=== PATIENT | female | born 2000 | race African-American/Black ===

== ENCOUNTER 2021-12-14 14:12 | Emergency (ER) | payer OTHER, SELFPAY ==
--- NOTE | 2021-12-14 14:18 | ED.EYEPROB ---
HPI - Eye Problem General Chief complaint: Eye Problems Stated complaint: Foreign Body In Left Eye Time Seen by Provider: 12/14/21 14:18 Source: patient Mode of arrival: ambulatory Limitations: no limitations History of Present Illness HPI Narrative: Ms. Bright is a 21-year-old female patient presenting to clinic today with complaints of possible foreign body in the left eye. She reports she was opening up a can of food at work and thinks that something got into her left eye. She reports discomfort to the left lower eyelid. She did do a eyewash at work and this helps some of the discomfort but she is still having pain to the left eyelid. She denies any visual changes Related Data Allergies Allergy/AdvReac Type Severity Reaction Status Date / Time No Known Allergies Allergy Verified 12/14/21 14:33 Review of Systems Review of Systems: Pertinent positives per HPI. Patient denies any fever, chills, rash, headache, visual changes, dizziness, cough, runny nose, sore throat, shortness of breath, chest pain, palpitations, nausea, vomiting, diarrhea, constipation, abdominal pain, or any urinary issues. PMFSH Comments At the time of my signature, I reviewed and agree with the nursing past medical, surgical, social, and family history. There is no relevant family history pertinent to the patient complaint. Exam Narrative: General: Well-developed, well nourished, in no apparent distress Head: Normocephalic, atraumatic Eyes: Pupils equally round and reactive to light bilaterally, EOM intact, sclera and conjunctive clear, no discharge, lids normal, no foreign body or corneal abrasion noted to the left eye, no lesions, masses, or foreign body noted within the left eyelids Ears: TMs intact and clear, ear canals clear, no drainage, grossly hearing normal. Nose: Nares patent, no discharge, no inflammation, no sinus tenderness. Mouth: Oropharynx without lesions or masses, good dentition, MMM. Neck: Supple, trachea midline, no enlargement of anterior or posterior cervical nodes, no thyroid masses or goiter palpable. Cardio: Regular rate and rhythm, s1 and s2 normal, no murmur appreciated. Resp: Clear to auscultation bilaterally anteriorly and posteriorly, no rhonchi, rales, wheezing or rubs Course Course Emergency Course: Portions of this record may have been created with voice recognition software. Level of Care: Express Care Visit Vital Signs Vital signs: Vital signs reviewed Procedures Other Procedure Procedure 1: Other Procedure: Topical anesthetic was instilled with good anesthesia using 2gtt of opth anesthetic agent (tetracaine). Fluorescein stain of the left eye was performed without uptake of dye. No epithelial defect was noted. NO FB, ulcer or dendritic lesions. Upper lid was everted and lower eyelid was swab with sterile cotton swabs and no FB or lesions were noted. NO Manjinder sign. Normal saline irrigation eye solution was performed and the patient tolerated the procedure well, no adverse reaction or complications. MDM - Eye Problem MDM Narrative Medical decision making narrative: At the time of visit patient is resting comfortably on the exam table. Michael lamp exam was performed and there was no sign of corneal abrasion or globe rupture. No visible foreign body noted. I suspect the patient may have eyelid irritation due to foreign body that has already been removed. We will send in prescription for erythromycin to prevent secondary infection and help soothe eyelid. Supportive measures were discussed with the patient she voiced understanding of discharge instructions and agrees to treatment plan Differential Diagnosis Differential diagnosis: Likely corneal abrasion, conjunctivitis, ruptured globe and other (Foreign body) Discharge Plan Discharge Clinical Impression: Irritation of eyelid Patient Disposition: Home, Self-Care Condition: Stable Instructions: Antibiotic Form, Eye Pain (ED) Additi
[2021-12-14 14:22] VITALS: BP 143/99; PULSE 89; RESP 20; TEMP 36.6; O2SAT 100
[2021-12-14 14:34] VITALS: BP 143/99; PULSE 89; RESP 20; TEMP 36.6; O2SAT 100
== END 2021-12-14 14:55 | disposition home or self-care (01) ==
PROVIDERS: Emergency Provider Nurse Practitioner Family
DX: H02.9 Unspecified disorder of eyelid (principal)
CPT/HCPCS: 99213; A9270; G0463

== ENCOUNTER 2022-01-04 08:02 | Emergency (ER) | payer OTHER, SELFPAY ==
[2022-01-04 08:09] VITALS: BP 124/79; PULSE 111; RESP 20; TEMP 37; O2SAT 98
--- NOTE | 2022-01-04 08:09 | ED.URI ---
HPI - URI/Sore Throat General Chief Complaint: Upper Respiratory Infection Stated Complaint: sore throat, tightness in chest, headache, cough Time Seen by Provider: 01/04/22 08:11 Source: patient and RN notes reviewed History of Present Illness HPI Narrative: Patient is a 21-year-old female who presents to the Urgent Care with complaints of sore throat, headache, cough and chest congestion. Patient states it started last night and she has been taking anti acids. Patient denies any nausea, fever, vomiting or exposure. No other acute complaints. No acute distress noted. Patient aware of the plan of care. Some parts of this dictation were generated by voice recognition software and may contain typographical and/or grammatical inaccuracies. Related Data Home Medications Medication Instructions Recorded Confirmed No Home Medications 01/04/22 01/04/22 Allergies Allergy/AdvReac Type Severity Reaction Status Date / Time No Known Allergies Allergy Verified 01/04/22 08:17 Review of Systems Review of Systems: CONSTITUTIONAL: Denies fever, chills, or sweats. EYES: Denies visual changes, redness, or discharge. ENT: Reports of sinus congestion, sore throat CARDIOVASCULAR: Denies chest pain, palpitations, or edema. RESPIRATORY: reports a cough and chest congestion GASTROINTESTINAL: Denies abdominal pain, nausea, vomiting, or diarrhea. GENITOURINARY: Denies dysuria or hematuria. SKIN: Denies rash or itching. MUSCULOSKELETAL: Denies back pain, joint pain, or myalgia. NEUROLOGIC: reports of headache All other systems reviewed are negative, except as documented in HPI. PMFSH Comments At the time of my signature, I reviewed and agree with the nursing past medical, surgical, social, and family history. There is no relevant family history pertinent to the patient complaint. Exam Narrative: GENERAL: This is a well-nourished, well-developed patient, in no apparent distress. HEAD: normocephalic, atraumatic. EYES: PERRL. Sclera clear/white. Vision is grossly intact. EARS: External ears normal, auditory canals clear and without drainage, TMs normal without perforation. Hearing grossly intact. NOSE: External nose normal with no obvious nasal discharge, nares without redness, clear rhinorrhea. THROAT: Mucous membranes moist, posterior pharynx clear. moderate postnasal drainage NECK: Neck supple, non-tender without lymphadenopathy, masses or thyromegaly. CARDIOVASCULAR: Regular rate and rhythm without murmurs, gallops, or rubs. RESPIRATORY: Clear to auscultation. Breath sounds equal bilaterally. No wheezes, rales, or rhonchi. SKIN: warm, intact with no suspicious lesions or rash, good texture and turgor. NEURO: awake, alert, and oriented to person, place and time. There were no obvious focal neurologic abnormalities. EXTREMITIES: No clubbing, cyanosis, or edema. Course Course Level of Care: Express Care Visit Vital Signs Vital signs: Vital Signs Temperature 98.6 F 01/04/22 08:09 Pulse Rate 111 H 01/04/22 08:09 Respiratory Rate 20 01/04/22 08:09 Blood Pressure 124/79 01/04/22 08:09 Pulse Oximetry 98 01/04/22 08:09 Oxygen Delivery Room Air 01/04/22 08:09 Temperature 98.6 F 01/04/22 08:09 Pulse Rate 111 H 01/04/22 08:09 Respiratory Rate 20 01/04/22 08:09 Blood Pressure 124/79 01/04/22 08:09 Pulse Oximetry 98 01/04/22 08:09 Oxygen Delivery Room Air 01/04/22 08:09 reviewed MDM - URI/Sore Throat MDM Narrative Medical decision making narrative: reviewed lab results with the patient. She is aware that strep swab was negative. Educated patient culture and we will call within 72 hours if culture is positive antibiotics are necessary. Influenza swab was also negative. Advised patient to use an [id number] allergy medication such as Claritin or Zyrtec, Delsym as needed for cough, and Tylenol/ ibuprofen as needed. Increase your water intake and rest. Use a humidifier at night.
== END 2022-01-04 08:45 | disposition home or self-care (01) ==
PROVIDERS: Emergency Provider Nurse Practitioner Family
DX: B34.9 Viral infection, unspecified (principal); E03.9 Hypothyroidism, unspecified
CPT/HCPCS: 87081; 87804; 87880; 99213; G0463

== ENCOUNTER 2022-01-31 12:54 | Emergency (ER) | payer OTHER, SELFPAY ==
[2022-01-31 13:07] VITALS: BP 131/81; PULSE 69; RESP 20; TEMP 36.8; O2SAT 100
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
== END 2022-01-31 16:07 | disposition home or self-care (01) ==
PROVIDERS: Emergency Provider Registered Nurse
DX: T21.22XA Burn of second degree of abdominal wall, initial encounter (principal); X19.XXXA Contact with other heat and hot substances, initial encounter; E03.9 Hypothyroidism, unspecified
CPT/HCPCS: 99213; G0463

== ENCOUNTER 2022-06-22 17:03 | Emergency (ER) | payer OTHER, SELFPAY ==
[2022-06-22 17:10] VITALS: BP 136/82; PULSE 102; RESP 16; TEMP 37.2; O2SAT 100
--- NOTE | 2022-06-22 17:19 | ED.GENADULT ---
HPI - General Adult General Chief complaint: Upper Respiratory Infection Stated complaint: sore throat/ nausea / ears Time Seen by Provider: 06/22/22 17:26 Source: patient and RN notes reviewed Mode of arrival: ambulatory Limitations: no limitations History of Present Illness HPI narrative: 21-year-old female presents with concern for 2 day history of nausea, sore throat, right ear pain. She reports nausea started 1st then the sore throat and ear pain. Reports her brother had strep throat. She denies fever, aches, chills, sweats. MD complaint: Sore throat Related Data Allergies Allergy/AdvReac Type Severity Reaction Status Date / Time No Known Allergies Allergy Verified 01/31/22 15:10 Review of Systems Review of Systems: CONSTITUTIONAL: Denies malaise, chills, sweats, or fever. EYES: Denies visual changes, redness, or discharge. ENT: Denies rhinorrhea, congestion, sinus pain. Reports otalgia and sore throat. CARDIOVASCULAR: Denies chest pain, palpitations, or edema. RESPIRATORY: Denies cough. Denies dyspnea. GASTROINTESTINAL: Denies abdominal pain, vomiting, diarrhea. Reports nausea SKIN: Denies rash or itching. MUSCULOSKELETAL: Denies myalgia. NEUROLOGIC: Denies headache. All systems reviewed & are unremarkable except as noted in HPI and below PMFSH Past Medical History Medical History Anemia Hypothyroidism Surgical History Surgical History Hx of breast reduction, elective Social History Social History (Updated 02/05/22 @ 17:23 by Tabitha Francisco NP) Smoking status: Never smoker Alcohol intake: unknown Substance use type: does not use Living arrangements: with family Gender identity (if verbalized by the patient): Female Comments At time of signature, agree with nursing past medical, surgical, social and family history. There is no relevant family history pertinent to the presenting complaint Exam Narrative: GENERAL: Well-appearing, well-nourished, and in no acute distress. HEAD: Normocephalic EYES: PERRLA, conjunctivae clear ENT: Nares clear, no discharge. Mucous membranes moist. TM pearly sethi with dull light reflex bilaterally; no tragal tenderness. Oropharynx erythematous without lesions. Tonsils not enlarged and without exudate, no drooling, no hoarseness, no trismus, uvula midline. NECK: Supple. No lymphadenopathy CHEST: Clear to auscultation, breath sounds equal. No wheezing, rhonchi, rales, or stridor. No respiratory distress, speaks in full sentences. HEART: Regular rate and rhythm. No murmur heard. SKIN: Warm, dry, no rash. NEURO: Alert and oriented x3. PSYCH: Normal mood and affect Course Course Emergency Course: Patient is aware of diagnosis, understands and agrees to treatment plan. Anticipatory guidance given. Patient agrees to follow-up as directed and is aware of reasons to seek care at the emergency department. Portions of this record may have been created with voice recognition software Level of Care: Express Care Visit Vital Signs Vital signs: Vital Signs Temperature 99 F 06/22/22 17:10 Pulse Rate 102 H 06/22/22 17:10 Respiratory Rate 16 06/22/22 17:10 Blood Pressure 136/82 06/22/22 17:10 Pulse Oximetry 100 06/22/22 17:10 Oxygen Delivery Room Air 06/22/22 17:10 Temperature 99 F 06/22/22 17:10 Pulse Rate 102 H 06/22/22 17:10 Respiratory Rate 16 06/22/22 17:10 Blood Pressure 136/82 06/22/22 17:10 Pulse Oximetry 100 06/22/22 17:10 Oxygen Delivery Room Air 06/22/22 17:10 Reviewed. Medical Decision Making MDM Narrative Medical decision making narrative: Differential diagnosis considered: Mora virus, strep pharyngitis, allergic rhinitis, upper respiratory tract infection, sinusitis, rhinosinusitis, nasopharyngitis. viral pharyngitis, otitis media, otitis externa, pneumonia, bronchitis, viral cough
== END 2022-06-22 17:35 | disposition home or self-care (01) ==
PROVIDERS: Emergency Provider Nurse Practitioner
DX: J02.0 Streptococcal pharyngitis (principal); E03.9 Hypothyroidism, unspecified
CPT/HCPCS: 87880; 99213; G0463

== ENCOUNTER 2023-08-05 12:31 | Emergency (ER) | payer OTHER, SELFPAY ==
[2023-08-05 12:34] VITALS: BP 139/89; PULSE 83; RESP 18; TEMP 36.7; O2SAT 98
--- NOTE | 2023-08-05 12:47 | ED.FEMALEGU ---
HPI - Female Genitourinary General Chief complaint: Urogenital-Female Stated complaint: Urinary Problem Time Seen by Provider: 08/05/23 12:47 Source: patient, RN notes reviewed and old records reviewed Mode of arrival: ambulatory Limitations: no limitations History of Present Illness HPI Narrative: 22 year old female who presents to [facility] care with 4 day history of urinary frequency and some lower abdominal cramping. Patient reports that she did have some spotting 2 days ago then resolved. Patient denies any vaginal discharge or itching wants tested for STD but reports has not been sexually active for 5 months.Patient has small open abscess to right groin which patient reports has been draining has had similar wound in past.Patient reports no fevers chills or sweats, denies any nausea or vomiting. Patient had to void at several attempts to get enough urine for testing. MD elicited complaint: UTI Onset (ago): day(s) (4) Location of symptoms: urethra and other (lower abdomen cramping) Vaginal discharge: none Related Data Allergies Allergy/AdvReac Type Severity Reaction Status Date / Time No Known Allergies Allergy Verified 08/05/23 12:53 Review of Systems Review of Systems: CONSTITUTIONAL: Denies fever, chills, or sweats. CARDIOVASCULAR: Denies chest pain, palpitations, or edema. RESPIRATORY: Denies cough or dyspnea. GASTROINTESTINAL: Reports lower abdomen cramping ,no nausea, vomiting, or diarrhea. GENITOURINARY: Reports dysuria, frequency, urgency. Denies flank pain or hematuria. SKIN: Denies rash or itching. small open absess to right groin area MUSCULOSKELETAL: Denies back pain or myalgia. Denies CVA tenderness NEUROLOGIC: Denies headache All systems reviewed & are unremarkable except as noted in HPI and below PMFSH Past Medical History Medical History Anemia Hypothyroidism IBS (irritable bowel syndrome) Surgical History Surgical History History of orthopedic surgery right ankle repair Hx of breast reduction, elective also right breast tumor removed benign Social History Social History (Updated 08/06/23 @ 08:15 by Tabitha Francisco NP) Smoking status: Never smoker Alcohol intake: current Alcohol use details: rare social Substance use type: does not use Living arrangements: with family Gender identity (if verbalized by the patient): Female Comments At time of signature, agree with nursing past medical, surgical, social and family history. There is no relevant family history pertinent to the presenting complaint Exam Narrative: GENERAL: Well-appearing, well-nourished, and in no acute distress. HEAD: Normocephalic, atraumatic. NECK: Supple.no lymphadenopathy CHEST: Clear to auscultation. No respiratory distress.SAO2 98% on room air HEART: Regular rate and rhythm. No murmur heard. Normal peripheral pulses. ABDOMEN: Soft, nontender to palpation, nondistended, normal active bowel sounds. No CVA tenderness,urinary frequency reported EXTREMITIES: Normal range of motion. No edema. SKIN: Warm, dry, no rash.0.2 open slightly red abscess in right groin which has been draining NEURO: No focal deficits. Alert and oriented x3. Course Course Emergency Course: Patient is aware of diagnosis, understands and agrees to treatment plan.? Anticipatory guidance given.? Patient agrees to follow-up as directed and is aware of reasons to seek care at the emergency department. Portions of this record may have been created with voice recognition software Level of Care: Express Care Visit Vital Signs Vital signs: Vital Signs Temperature 36.7 C 08/05/23 12:34 Pulse Rate 83 08/05/23 12:34 Respiratory Rate 18 08/05/23 12:34 Blood Pressure 139/89 08/05/23 12:34 Pulse Oximetry 98 08/05/23 12:34 Oxygen Delivery Room Air 08/05/23 12:34 Temperature 36.7 C 08/05/23 12:34
[2023-08-05 21:27] LABS: Chlamydia trachomatis NOT DETECTED (NOT DETECTE); Neisseria gonorrhoeae PCR NOT DETECTED (NOT DETECTE)
== END 2023-08-05 14:26 | disposition home or self-care (01) ==
PROVIDERS: Emergency Provider Registered Nurse
DX: L02.214 Cutaneous abscess of groin (principal); N39.0 Urinary tract infection, site not specified; Z11.3 Encounter for screening for infections with a predominantly sexual mode of transmission; E03.9 Hypothyroidism, unspecified
CPT/HCPCS: 81003; 87086; 87491; 87591; 99214; G0463

== ENCOUNTER 2024-05-21 18:43 | Emergency (ER) | payer OTHER, SELFPAY ==
--- OUTSIDE RECORDS SUMMARY | 2024-05-21 18:46 | XMS_ITS | Data Portability ---
Author Organization [employer], [facility] Address [address] [place] [address] Assessment No assessment recorded. Plan of Treatment Reminders Order Date Submit Date Provider Last Modified By Organization Details Last Modified Time Details Appointments None record ed. Lab None record ed. Referral None record ed. Procedures None record ed. Surgeries None record ed. Imaging None record ed. Medication Orders None record ed. Patient TargetsNo targets recorded. Patient InstructionsNo instructions recorded. Reason for Referral None Reported. Procedures Surgical History Date Name Laterality Status Provider Name and Address Organization Details Recorded Time Date of Last Pap Smear completed [facility] [employer] 02/14/2024 12:01:31 Breast Reduction completed Amanda Sanchez [employer] 02/14/2024 12:01:32 Imaging Results None recorded. Procedure Notes None recorded. Medical Equipment None Reported. Allergies No known drug allergies Medications Name Sig Start Date Stop Date Status Note LastModified by Organization Details LastModified Time sulfamethox azole 800 mg-trimetho prim 160 mg tablet TAKE 1 TABLET BY MOUTH EVERY 12 HOURS FOR 10 DAYS 02/13 completed Not Available Not Available Not Available mupirocin 2 % topical ointment APPLY TOPICALLY TWICE A DAY active Not Available Not Available No t Available clotrimazol e 1 % topical cream PLEASE SEE ATTACHED FOR DETAILED DIRECTION S active Not Available Not Available No t Available Vitals Date Recorded Body height Body mass index (BMI) Body weight Systolic blood pressure Diastolic blood pressure Provider Name and Address Organization Details Last Updated DateTime 02/14/2024 160.02 cm 37.9 kg/m2 32253.05 g 118 mm[Hg] 70 mm[Hg] Amanda [place] [employer] 12:08:07 Social History Question Answer Notes LastModified by Organizat ion Details LastModified Time Tobacco Smoking Status Never Smoker Amanda Sanchez null, [facility] 02/14/2024 12:01:32 What Is Your Level Of Alcohol Consumption? None [email or web address] Information not available 02/14/2024 If You Are , What Was Your Level Of Alcohol Consumption Prior To ? None [email or web address] Information not available 02/14/2024 Are You Blind Or Do You Have Difficulty Seeing? No [email or web address] Information not available 02/14/2024 Are You Currently Employed? Yes [email or web address] Information not available 02/14/2024 Are You Deaf Or Do You Have Serious Difficulty Hearing? No [email or web address] Information not available 02/14/2024 What Type Of Diet Are You Following? REGULAR [email or web address] Information not available 02/14/2024 How Many Children Do You Have? 0 [email or web address] Information not available 02/14/2024 Are There Any Occupational Health Risks Where You Work? Yes [email or web address] Information not available 02/14/2024 What Is Your Relationship Status? Single Information not available 02/14/2024 Are You Sexually Active? Yes Information not available 02/14/2024 Do You Use Any Illicit Or Recreational Drugs? No [email or web address] Information not available 02/14/2024 Sex: Unknown Functional Status Question Answer Note LastModified by Organizat [employer] Details LastModified Time What is your exercise level? Occasional [email or web address] Information not available 02/14/2024 Mental Status None recorded. Family History Relationship Description Onset Age of this Age Resolved Age Notes LastModified by Organization Details LastModified Time Mother Hypertensive disorder [email or web address] Not available 02/13 12:01:31 Father Hypertensive disorder [email or web address] Not available 02/13 12:01:31 Medical History Condition Response Anemia Y IBS (Irritable Bowel Syndrome) Y Gynecological History Statement/Question Response Flow Moderate Date of LMP 02/13/2024 Frequency of Cycle (Q days) 19,20,21,22. 23 Date of Last Pap Smear 12/03/2023 Duration of Flow (days) 5 Age at Menarche 9 years old Obstetrics History GPAL:G 0 P 0 0 0 0 Past Encounters Encounter ID Performer Location Encounter Start Date Encounter Closed Date Diagnosis/Indication Diagnosis SNOMED-CT Code Diagnosis ICD10 Code Diagnosis Note [id number] Mae Calix MD [facility] [address] [place] [place] [address] 02/14/2024 11:48:03 02/14/2024 13:17:49 Cyst of Bartholin's gland duct 86863951 N75.0 -Discussed multiple different options with the bartholin gland abscess, including warm compresses to help decrease size, I&D and potential needs or word catheter.- Discussed risks benefits of both and urged to proceed conservati vely as the area can be quite vascular.- Due to small size of cyst will monitor at this time. Patient will apply warm compresses 2-3 times a day.-Will RTC if increases in size or pain for possible I&D-Precau tions reviewed and s/sx of infection discussed. Patient voices understand ing. The patient was initially evaluated by KRISSY Balderas, who completed the history examinatio n, and preliminar y assessment . I, Mae Calix MD, entered the room to review and discuss the care plan with the patient. After reviewing the specific findings and documentat ion provided by Melina, I confirmed the diagnosis and care plan, addressing any additional concerns or questions raised by the patient. The final plan of care was developed collaborsarah perry and has been documented accordingelicia y. Health Concerns Section Related Observation LastModified by Organization Detai ls LastModified Time None Recorded Concern Status LastModified by Organization Details LastModified Time None Recorded Advance Directives Directive None Recorded Payers Encounter Date Sequence Insurance Name Policy Number Policy Graham Covered Member ID Graham Member ID Guarantor Name 02/14/2024 1 [facility] Ana Bright [id number] Ana Bright Notes Date Note Type Note Provider Name and Address Organization Details Recorded Time 02/14/2024 text/html Ana 23 y/o ne w patient here for ER f/u on Bartholin cyst, she was in ER on 01/31/2024 due to a painful cyst, they completed an I&D at that time. Patient states it decreased in size and then filled back up. It was smaller so her PCP told her to do sitz baths and follow up with STACK ATTENDANT. Pt reports it has almost gone completely away and denies any discomfort today. This was her first time experiencing a bartholin cyst. Mae Calix MD [address] [facility], [place], [address], [facility] 02/14/2024 20:06:05 OBGyn Episode No OBEpisode recorded.
--- OUTSIDE RECORDS SUMMARY | 2024-05-21 18:46 | XMS_ITS | Clinical Summary ---
Author Organization [facility] [employer] Address [address] [place] [address] Care Team Providers Care Party Plan Sales Director Name Role Phone Sheeba Vegas Cassandra KEYS-FIVE ROLL REFINER BATCH MIXER Primary Care Provider Source Comments [facility] [employer],non-owned Affiliates and Associated Physician Practices is amultiple site organization consisting of ambulatory clinics and hospital sitesin [place], [place], [place] and [place]. This disclosure is being madepursuant to the Care Everywhere program and may not contain all information available regarding this patient. Last updated [employer] Allergies No known active allergies Medications * Be aware that medications may not be up to date on this document. Alwaysverify current medications with the patient. Medication Sig Dispensed Refills Start Date End Date Status ibuprofen (MOTRIN) 800 MG tablet TAKE 1 TABLET BY MOUTH THREE TIMES A DAY NEEDED 1 11/13/2018 Active cyclobenzaprine (FLEXERIL) 10 MG tablet TAKE 1 TABLET BY MOUTH THREE TIMES A DAY NEEDED 1 11/09/2018 Active Family History Medical History Relation Name Comments Hypertension Father Hypertension Mother Relation Name Status Comments Father Mother Social History Tobacco Use Types Packs/Day Years Used Date Smoking Tobacco: Never Smokeless Tobacco: Never Alcohol Use Standard Drinks/Week Comments Never 0 (1 standard drink = 0.6 oz pur e alcohol) AUDIT-C Answer Date Recorded Frequency of Alcohol Consumption Never 12/03/2018 Average Number of Drinks Not on file 019 Frequency of Binge Drinking Not on file 10/2018 Sex and Gender Information Value Date Recorded Sex Assigned at Not on file Gender Identity Not on file Sexual Orientation Not on file Last Filed Vital Signs Vital Sign Reading Time Taken Comments Blood Pressure 145/95 12/03/2018 10:56 AM CDT Pulse 76 12/03/2018 10:56 AM CDT Temperature 36.7 C (98 F) 12/03/2018 10:56 AM CDT Respiratory Rate - - Oxygen Saturation 99% 12/03/2018 10:56 AM CDT Inhaled Oxygen Concentration - - Weight 95.3 kg (210 lb) 12/03/2018 10:56 AM CDT Height 160 cm (5' 3 ) 12/03/2018 10:56 AM CDT Body Mass Index 37.2 12/03/2018 10:56 AM CDT Plan of Treatment Health Maintenance Due Date Last Done Comments HIV SCREENING 2013 HPV VACCINE (1 - 3-dose series) 2013 HEPATITIS C SCREENING 08/04/2016 DTAP/TDAP/TD VACCINES (1 - Tdap) 2017 HEPATITIS B VACCINE (1 of 3 - 19+ 3-dose series) 2017 CHLAMYDIA/GONORRHEA SCREENING 11/27/2019 11/26/2018 PAP SMEAR 11/26/2021 COVID-19 VACCINE (1 - 2023-2 5 season) 2023 INFLUENZA VACCINE (#1) 2023 DEPRESSION SCREENING 02/26/2024 ZOSTER VACCINE (1 of 2) 2048 HIB VACCINE Aged Out No longer eligi ble based on patient's age to complete this topic MENINGOCOCCAL (Group B) VACC INE SHARED DECISION-MAKING Aged Out No longer eligibl e based on patient's age to complete this topic MENINGOCOCCAL GROUPS A/C/Y/W VACCINE Aged Out No longer eligible b ased on patient's age to complete this topic PNEUMOCOCCAL VACCINE Aged Out No long er eligible based on patient's age to complete this topic Care Teams Party Plan Sales Director Relationship Specialty Start Date End Date Sheeba Vegas, OYSTER CULTURIST-FIVE ROLL REFINER BATCH MIXER [address] [place] [id number] [facility] - General 11/18/18
--- OUTSIDE RECORDS SUMMARY | 2024-05-21 18:46 | XMS_ITS | Clinical Summary ---
Author Organization [facility] Address [address] [place] [address] Phone Care Team Providers Care General Accounting Manager Name Role Phone Provider, None Primary Care Provider Unavailabl e Allergies No known active allergies Medications Ferrous Sulfate (IRON PO) Take by mouth. Active Active Problems Problem Noted Date Diagnosed Date B12 deficiency 04/17/2023 Anemia 12/14/2022 Menorrhagia with regular cycle 12/14/2022 Social History Tobacco Use Types Packs/Day Years Used Date Smoking Tobacco: Never Smokeless Tobacco: Never Tobacco Cessation:Counseling Given: Not Answered Alcohol Use Standard Drinks/Week Comments Not Currently 0 (1 standard drink = 0.6 oz pur e alcohol) Comments No Sex and Gender Information Value Date Recorded Sex Assigned at Female 02/01/2024 2:35 AM TUMBLING INSTRUCTOR Legal Sex Female 12:23 PM CDT Gender Identity Female 02/01/2024 2:35 AM TUMBLING INSTRUCTOR Sexual Orientation Not on file Last Filed Vital Signs Vital Sign Reading Time Taken Comments Blood Pressure 140/70 02/01/2024 4:11 AM TUMBLING INSTRUCTOR Pulse 88 02/01/2024 4:11 AM TUMBLING INSTRUCTOR Temperature 36.1 C (96.9 F) 02/01/2024 12:57 AM TUMBLING INSTRUCTOR Respiratory Rate 18 02/01/2024 4:11 AM TUMBLING INSTRUCTOR Oxygen Saturation 100% 02/01/2024 4:11 AM TUMBLING INSTRUCTOR Inhaled Oxygen Concentration - - Weight 97.1 kg (214 lb) 02/01/2024 12:57 AM TUMBLING INSTRUCTOR Height 160 cm (5' 3 ) 02/01/2024 12:57 AM TUMBLING INSTRUCTOR Body Mass Index 37.91 02/01/2024 12:57 AM TUMBLING INSTRUCTOR Plan of Treatment Health Maintenance Due Date Last Done Comments Hepatitis C Virus (HCV) Screening 1998 Pap Smear 08/10/2019 Influenza Immunization (#1) 2023 01/22/2023, 0 04/28/2013 SARS-COV-2 Immunization ( season) 2023 Respiratory Syncytial Virus (RSV) Immunization (Adult) (1 - 1-dose 75+ series) 2073 Hepatitis B Immunization Completed 000, 01/23/1999, 1998 Human Papillomavirus (HPV) Immunization Completed 04/28/2013, 10/28/2012 Meningococcal Immunization (ACWY) Completed 11/26/2016, 10/28/2012 Meningococcal B Immunization Discontinued 10/14/2017, 11/26/2016 DTaP/Tdap/Td Immunization Discontinued 2022, 10/28/2012, 09/23/2003, Additional history exists TdaP Immunization Completed 11/28/2022, 10/28/2012 Pneumococcal Immunization Combined Aged Out No longer eligible based on patient's age to complete this topic Rotavirus Immunization Aged Out No lo nger eligible based on patient's age to complete this topic Insurance MEDICARE C [place] Care Teams General Accounting Manager Relationship Specialty Start Date End Date Provider, None [place] PCP - General 01/12/24
--- OUTSIDE RECORDS SUMMARY | 2024-05-21 18:46 | XMS_ITS | Referral Summary ---
Author Organization [facility] Address [address] [place] [address] Care Team Providers Care Supervisor Ship Maintenance Services Name Role Phone Gordy Mcgowan MD Primary Care Provider + Allergies No known active allergies Medications ibuprofen (ADVIL,MOTRIN) 400 mg tablet take 1 tablet by oral route every 4 - 6 hours as needed 0 0 5 Active HYDROcodone-ac etaminophen ([place]) 5-325 mg per tabletIndicati ons:Pain Take 1 tablet by mouth every 6 (six) hours as needed for pain 12 tablet 1 Active ibuprofen (ADVIL,MOTRIN) 600 mg tablet Take 1 tablet (600 mg total) by mouth every 6 (six) hours as needed for pain Collaborating physician César Wallace MD 30 tablet 2 Active ibuprofen (ADVIL,MOTRIN) 600 mg tabletIndicati ons:Pain Take 1 tablet (600 mg total) by mouth every 6 (six) hours as needed for pain 21 tablet 3 Active Active Problems Problem Noted Date Diagnosed Date Urinary tract infection in female 09/11/2021 Dysmenorrhea 09/11/2021 Breast mass, right 05/30/2020 Social History Tobacco Use Types Packs/Day Years Used Date Smoking Tobacco: Never Smokeless Tobacco: Never AUDIT-C Answer Date Recorded Q1: How often do you have a drink containing alc ohol? Monthly or less 10/17/2020 Q2: How many drinks containi ng alcohol do you have on a typical day when you are drinking? 1 or 2 10/17/2020 Q3: How often do you have si x or more drinks on one occasion? Never 10/17/2020 Personal Safety Answer Date Recorded Have you ever been in or are you currently in a harmful physical or emotional relationship or is someone making you feel afraid or unsafe? 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 Gender Identity Not on file Sexual Orientation Not on file Last Filed Vital Signs Vital Sign Reading Time Taken Comments Blood Pressure 148/79 10/07/2022 7:04 PM CDT Pulse 91 10/07/2022 7:04 PM CDT Temperature 37.1 C (98.8 F) 10/07/2022 7:04 PM CDT Respiratory Rate 18 10/07/2022 7:04 PM CDT Oxygen Saturation 100% 10/07/2022 7:04 PM CDT Inhaled Oxygen Concentration - - Weight 93.3 kg (205 lb 11 oz) 10/07/2022 7:04 PM CDT Height 160 cm (5' 3 ) 10/07/2022 7:04 PM CDT Body Mass Index 36.44 10/07/2022 7:04 PM CDT Plan of Treatment Not on file Medical Devices Implanted Type Area Performance Consultant Device Identifier Shelf Expiration Date Model / Serial / Lot Bard Peripheral Vascular [id number] Ultraclip Bard 17ga 12cm 2 Trigger Permanent Ultrasound - [id number] - [id number] Implanted:Qty: 1 on 05/09/2020 by Oneil Jansen MD at [facility] Breast Right: Breast Bard Peripheral Vascular 11/22/2022 [id number] / [id number] / Bard Peripheral Vascular [id number] Ultraclip Bard 17ga 10cm 2 Trigger Permanent Ultrasound - [id number] - [id number] Implanted:Qty: 1 on 05/09/2020 by Oneil Jansen MD at [facility] Breast Right: Axilla Bard Peripheral Vascular 11/22/2022 [id number] / [id number] / [employer] [id number] Magseed 18ga 7cm Marker Breast Biopsy - [id number] Implanted:Qty: 1 on 10/24/2020 at [facility] Right: Breast [employer] [id number] 05/25/2024 [id number] Insurance [facility] [employer] [place] Care Teams Supervisor Ship Maintenance Services Relationship Specialty Start Date End Date Gordy Mcgowan MD [address] [place] [address] [place] [address] PCP - General 10/20/21
--- OUTSIDE RECORDS SUMMARY | 2024-05-21 18:46 | XMS_ITS | Clinical Summary ---
Author Organization [facility] Address [address] [place] [address] Care Team Providers Care Automobile Accessories Salesperson Name Role Phone Gordy Mcgowan MD Primary Care Provider + Allergies No known active allergies Medications ibuprofen (ADVIL,MOTRIN) 400 mg tablet take 1 tablet by oral route every 4 - 6 hours as needed 0 0 5 Active HYDROcodone-ac etaminophen ([place]) 5-325 mg per tabletIndicati ons:Pain Take 1 [...] 09/11/2021 Dysmenorrhea 09/11/2021 Breast mass, right 05/30/2020 Surgical History Surgery Date Site/Laterality Comments US GUIDED BIOPSY LYMPH NODE SUPERFICIAL LEFT 05/09/2020 N/A BREAST BIOPSY 05/09/2020 Right ORIF ANKLE FRACTURE 02/25/2015 - 02/25/2016 Medical History Medical History Date Comments Hx Other Medical right ankle ope n reduction and internal fixation ( Family History Medical History Relation Name Comments Diabetes type II Other 1 Family hist ory of Diabetes mellitus type 2; Heart disease Other 2 Family history of Heart problems; Hypertension Other 3 Family history of Hypertension; Seizures Other 4 Family history of Seizure disorder; Stroke Other 5 Family history of Stroke; Anesthesia problems Neg Hx Relation Name Status Comments Other 1 Other 2 Other 3 Other 4 Other 5 Social History Tobacco Use Types Packs/Day Years [...] on file Legal Sex Female 10:12 AM ENGINE LATHE SET UP OPERATOR Gender Identity Not on file Sexual Orientation Not on file Obstetrics History Last Filed Vital Signs Vital Sign Reading [...] 10/07/2022 7:04 PM CDT Plan of Treatment Health Maintenance Due Date Last Done Comments Cervical Cancer Screening 1998 Depression Screening 1998 Hepatitis C Screening 1998 Regular Well Visit/Exam 18-64 2016 DTaP/Tdap/Td Vaccine (6 - Td or Tdap) 10/28/2022 10/28/2012, 09/23/2003, 06/13/1999, Additional history exists Influenza Vaccine (#1) 2023 04/28/2013 Hepatitis B Screening Completed 06/13/1999 , 01/23/1999, 1998 Varicella Vaccines Completed 10/28/2012, 09/20/1999 HPV Vaccines Completed 04/28/2013, 10/28/2012 Pneumococcal vaccine <65 Aged Out No longer eligible based on patient's age to complete this topic Medical Devices Implanted Type Area Coffee Sampler Device Identifier Shelf Expiration Date Model / Serial / Lot Bard Peripheral Vascular [id number] Ultraclip Bard 17ga 12cm 2 Trigger Permanent Ultrasound - [id number] - [id number] Implanted:Qty: 1 on 05/09/2020 by Oneil Jansen MD at [facility] Breast Right: Breast Bard Peripheral Vascular 11/22/2022 [id number] / [id number] / Bard Peripheral Vascular [id number] Ultraclip Bard 17ga 10cm 2 Trigger Permanent Ultrasound - [id number] - [id number] Implanted:Qty: 1 on 05/09/2020 by Oneil Jansen MD at [facility] Breast Right: Axilla Bard Peripheral Vascular 11/22/2022 [id number] / [id number] / [employer] [id number] [id number] 18ga 7cm Marker Breast Biopsy - [id number] Implanted:Qty: 1 on 10/24/2020 at [facility] Right: Breast [employer] [id number] 05/25/2024 [id number] Insurance [facility] Care Teams Automobile Accessories Salesperson Relationship Specialty Start Date End Date Gordy Mcgowan MD [address] [place] [address] [place] [address] [facility] - General 10/20/21
--- OUTSIDE RECORDS SUMMARY | 2024-05-21 18:46 | XMS_ITS ---
Author Organization [facility] Address [address] [place] [address] Phone Care Team Providers Care Senior Oracle Soa Developer Name Role Phone Provider, None Primary Care Provider Unavailabl e [facility] Status:Enrolled (Active) Start date:03/25/2024 Enrollment date:03/25/2024 Related social drivers of health:Social Connections, Alcohol Use, Financial Resource Strain, Depression, Stress, Physical Activity, Food Insecurity, Transportation Needs, Housing Stability, Utilities Continued Care and Services Coordination
--- OUTSIDE RECORDS SUMMARY | 2024-05-21 18:46 | XMS_ITS | Data Portability ---
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 Plan of Treatment Reminders Order Date Submit Date Provider Last Modified By Organization Details Last Modified Time Details Appointments None record ed. Lab cytolo gy report , thin prep, smear or scrapi ng, cervic al or vagina l - brush and broom 2023 024 brendan [facility], [address], [place], [address], 4 18:45:53 cytolo gy report , thin prep, smear or scrapi ng, cervic al or vagina l 2022 023 DIANNE [facility], [address], [place], [address], 3 17:09:55 Referral gyneco logist referr al 2023 024 [facility], [address] [place], [address], 5 09:23:25 Procedures None record ed. Surgeries None record ed. Imaging None record ed. Medication Orders Bactri m DS 800 mg-160 mg tablet 2023 024 brendan [facility] [id number] In [facility], [address], [place], [place], [id number], 10:41:58 clotri mazole 1 % topica l cream 2023 024 [facility] [id number] In [facility], [address], [place], [place], [id number], 10:20:42 Patient TargetsNo targets recorded. Patient Instructions Encounter Date Encounter Id Patient Instructions Last Modified By Organization Details Last Modified Time 12/28/2022 [id number] A healthy lifestyle: care instructions Not available 12/28/2022 12:01:34 01/22/2023 [id number] Attending Physician Attestation nurse visit, not seen by provider John Fang MD mmetias Not available 01/30/2023 09:30:05 04/24/2023 [id number] A healthy lifestyle: care instructions Not available 04/24/2023 10:39:28 I discussed the patient s presentation, findings, assessment and plan with the resident during or immediately after the time of service. I agree with the resident s findings, assessment, and plan as documented in the note above. Zhou Blanca MD. 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 Referring Physician: Nkechi Singh, ELECTRICAL ELECTRONICS TECHNICIAN, Encounter Date: 02/04/2024 Results Created Date Observation Date Name Description Value Unit Range Abnormal Flag Note LastModifiedBy Organization Detail LastModifiedTime 11/29/19 23 11/28/2022 CBC WITH DIFFE RENTI AL/PL ATELE T WBC 6.7 x10e3 /uL 3.4-10 .8 Not Available [facility] Department [address] [place], [address], 11/29/2022 06:15:44 11/29/1911/28/2022 CBC WITH DIFFE RENTI AL/PL ATELE T RBC 4.70 x10e6 /uL 3.77-5 .28 Not Available [facility] Department [address] [place], [address], 11/29/2022 06:15:44 11/29/1911/28/2022 CBC WITH DIFFE RENTI AL/PL ATELE T hemoglobin 11.2 g/dL 11.1-1 5.9 Not Available [facility] Department [address] [place], [address], 11/29/2022 06:15:44 11/29/1911/28/2022 CBC WITH DIFFE RENTI AL/PL ATELE T hematocrit 37.3 % 34.0-4 6.6 Not Available [facility] Department [address] [place], [address], 11/29/2022 06:15:44 11/29/1911/28/2022 CBC WITH DIFFE RENTI AL/PL ATELE T MCV 79 fL 79-97 Not Available [facility] Department [address] [place], [address], 11/29/2022 06:15:44 11/29/1911/28/2022 CBC WITH DIFFE RENTI AL/PL ATELE T MCH 23.8 pg 26.6-3 3.0 below low normal Not Available [facility] Department [address] [place], [address], 11/29/2022 06:15:44 11/29/1911/28/2022 CBC WITH DIFFE RENTI AL/PL ATELE T MCHC 30.0 g/dL 31.5-3 5.7 below low normal Not Available [facility] Department [address] [place], [address], 11/29/2022 06:15:44 11/29/1911/28/2022 CBC WITH DIFFE RENTI AL/PL ATELE T RDW 14.6 % 11.5-1 4.5 above high normal Not Available [facility] Department [address] [place], [address], 11/29/2022 06:15:44 11/29/1911/28/2022 CBC WITH DIFFE RENTI AL/PL ATELE T platelets 345 x10e3 /uL 150-45 0 Not Available [facility] Department [address] [place], [address], 11/29/2022 06:15:44 11/29/1911/28/2022 CBC WITH DIFFE RENTI AL/PL ATELE T neutrophils 55 % notest b. Not Available [facility] Department [address] [place], [address], 11/29/2022 06:15:44 11/29/1911/28/2022 CBC WITH DIFFE RENTI AL/PL ATELE T lymphs 35 % notest b. Not Available [facility] Department [address] [place], [address], 11/29/2022 06:15:44 11/29/1911/28/2022 CBC WITH DIFFE RENTI AL/PL ATELE T monocytes 9 % notest b. Not Available [facility] Department [address] [place], [address], 11/29/2022 06:15:44 11/29/1911/28/2022 CBC WITH DIFFE RENTI AL/PL ATELE T eos 1 % notest b. Not Available [facility] Department [address] [place], [address], 11/29/2022 06:15:44 11/29/19 23 11/28/2022 CBC WITH DIFFE RENTI AL/PL ATELE T basos 0 % notest b. Not Available [facility] Department [address] [place], [address], 11/29/2022 06:15:44 11/29/1911/28/2022 CBC WITH DIFFE RENTI AL/PL ATELE T neutrophils (absolute) 3.7 x10e3 /uL 1.4-7. 0 Not Available [facility] Department [address] [place], [address], 11/29/2022 06:15:44 11/29/1911/28/2022 CBC WITH DIFFE RENTI AL/PL ATELE T lymphs (absolute) 2.3 x10e3 /uL 0.7-3. 1 Not Available [facility] Department [address] [place], [address], 11/29/2022 06:15:44 11/29/1911/28/2022 CBC WITH DIFFE RENTI AL/PL ATELE T monocytes(ab solute) 0.6 x10e3 /uL 0.1-0. 9 Not Available [facility] Department [address] [place], [address], 11/29/2022 06:15:44 11/29/1911/28/2022 CBC WITH DIFFE RENTI AL/PL ATELE T eos (absolute) 0.1 x10e3 /uL 0.0-0. 4 Not Available [facility] Department [address] [place], [address], 11/29/2022 06:15:44 11/29/1911/28/2022 CBC WITH DIFFE RENTI AL/PL ATELE T baso (absolute) 0.0 x10e3 /uL 0.0-0. 2 Not Available [facility] Department [address] [place], [address], 11/29/2022 06:15:44 11/29/1911/28/2022 CBC WITH DIFFE RENTI AL/PL ATELE T immature granulocytes 0.1 % notest b. Not Available [facility] Department [address] [place], [address], 11/29/2022 06:15:44 11/29/1911/28/2022 CBC WITH DIFFE RENTI AL/PL ATELE T immature grans (abs) 0.0 x10e3 /uL 0.0-0. 1 Not Available [facility] Department [address] [place], [address], 11/29/2022 06:15:44 11/29/1911/28/2022 CBC WITH DIFFE RENTI AL/PL ATELE T NRBC 0 % 0-0 Not Available [facility] Department [address] [place], [address], 11/29/2022 06:15:44 11/29/1911/29/2022 HGB FRACT IONAT ION CASCA DE HGB F 0.0 % 0.0-2. 0 Not Available [facility] ([facility]) [address] [place], [address], 11/30/2022 11:13:31 11/29/1911/29/2022 HGB FRACT IONAT ION CASCA DE HGB A 97.8 % 96.4-9 8.8 Not Available [facility] ([facility]) [address] [place], [address], 11/30/2022 11:13:31 11/29/1911/29/2022 HGB FRACT IONAT ION CASCA DE HGB A2 2.2 % 1.8-3. 2 Not Available [facility] ([facility]) [place], [address], 11/30/2022 11:13:31 11/29/1911/29/2022 HGB FRACT IONAT ION CASCA DE HGB S 0.0 % 0.0 Not Available [facility] ([facility]) [address] [place], [address], 11/30/2022 11:13:31 11/29/1911/29/2022 HGB FRACT IONAT ION CASCA DE interpretati on: Commen t Abi l hemog lobin prese nt; no hemog lobin varia nt or beta thala ssemi a ident ified . Note: Alpha thala ssemi a may not be detec agustín by the Hgb Fract ionat ion [place] de panel . If alpha thala ssemi a is suspe cted, [facility] offer s Alpha -Thal assem ia DNA Dayanara sis (#[phone]). Not Available [facility] ([facility]) [address] [facility], [place], [address], 11/30/2022 11:13:31 11/29/1911/29/2022 VITAM IN B12 AND FOLAT E vitamin B12 284 pg/mL 232-12 45 Not Available [facility] ([facility]) [address] [place], [address], 11/30/2022 11:13:32 11/29/1911/29/2022 VITAM IN B12 AND FOLAT E folate (folic acid), serum 7.3 NG/mL >3.0 A serum folat e layne ntrat ion of less than 3.1 ng/mL is consi dered to repre sent clini krista defic iency . Not Available [facility] ([facility]) [address] [facility], [place], [address], 11/30/2022 11:13:32 11/29/1911/29/2022 IRON AND TIBC iron bind.cap.(TI BC) 381 ug/dL 250-45 0 Not Available [facility] ([facility]) [address] [place], [address], 11/30/2022 11:13:33 11/29/19 23 11/29/2022 IRON AND TIBC UIBC 361 ug/dL 131-42 5 Not Available [facility] ([facility]) [address] [place], [address], 11/30/2022 11:13:33 11/29/19 23 11/29/2022 IRON AND TIBC iron 20 ug/dL 27-159 below low normal Not Available [facility] ([facility]) [address] [facility], [place], [address], 11/30/2022 11:13:33 11/29/1911/29/2022 IRON AND TIBC iron saturation 5 % 15-55 alert low Not Available [facility] ([facility]) [address] [facility], [place], [address], 11/30/2022 11:13:33 11/29/1911/29/2022 KRISTINA TIN ferritin 6 NG/mL 15-150 below low normal Not Available [facility] ([facility]) [address] [facility], [place], [address], 11/30/2022 11:13:34 11/29/1911/29/2022 HEMAT OPATH CONSU LTATI ON, SMEAR WBC 6.5 x10e3 /uL 3.4-10 .8 Not Available [facility] ([facility]) [address] [facility], [place], [address], 11/30/2022 11:13:35 11/29/1911/29/2022 HEMAT OPATH CONSU LTATI ON, SMEAR RBC 4.74 x10e6 /uL 3.77-5 .28 Not Available [facility] ([facility]) [address] [facility], [place], [address], 11/30/2022 11:13:35 11/29/1911/29/2022 HEMAT OPATH CONSU LTATI ON, SMEAR hemoglobin 11.1 g/dL 11.1-1 5.9 Not Available [facility] ([facility]) [address] [facility], [place], [address], 11/30/2022 11:13:35 11/29/1911/29/2022 HEMAT OPATH CONSU LTATI ON, SMEAR hematocrit 37.2 % 34.0-4 6.6 Not Available [facility] ([facility]) [address] [place], [address], 11/30/2022 11:13:35 11/29/1911/29/2022 HEMAT OPATH CONSU LTATI ON, SMEAR MCV 79 fL 79-97 Not Available [facility] ([facility]) [address] [place], [address], 11/30/2022 11:13:35 11/29/1911/29/2022 HEMAT OPATH CONSU LTATI ON, SMEAR MCH 23.4 pg 26.6-3 3.0 below low normal Not Available [facility] ([facility]) [address] [facility], [place], [address], 11/30/2022 11:13:35 11/29/1911/29/2022 HEMAT OPATH CONSU LTATI ON, SMEAR MCHC 29.8 g/dL 31.5-3 5.7 below low normal Not Available [facility] ([facility]) [address] [place], [address], 11/30/2022 11:13:35 11/29/1911/29/2022 HEMAT OPATH CONSU LTATI ON, SMEAR RDW 14.0 % 11.7-1 5.4 Not Available [facility] ([facility]) [address] [place], [address], 11/30/2022 11:13:35 11/29/1911/29/2022 HEMAT OPATH CONSU LTATI ON, SMEAR platelets 315 x10e3 /uL 150-45 0 Not Available [facility] ([facility]) [address] [place], [address], 11/30/2022 11:13:35 11/29/1911/29/2022 HEMAT OPATH CONSU LTATI ON, SMEAR neutrophils 55 % notest ab. Not Available [facility] ([facility]) [address] [facility], [place], [address], 11/30/2022 11:13:35 11/29/19 23 11/29/2022 HEMAT OPATH CONSU LTATI ON, SMEAR lymphs 34 % notest ab. Not Available [facility] ([facility]) [address] [facility], [place], [address], 11/30/2022 11:13:35 11/29/19 23 11/29/2022 HEMAT OPATH CONSU LTATI ON, SMEAR monocytes 9 % notest ab. Not Available [facility] ([facility]) [address] [facility], [place], [address], 11/30/2022 11:13:35 11/29/19 23 11/29/2022 HEMAT OPATH CONSU LTATI ON, SMEAR eos 1 % notest ab. Not Available [facility] ([facility]) [address] [facility], [place], [address], 11/30/2022 11:13:35 11/29/19 23 11/29/2022 HEMAT OPATH CONSU LTATI ON, SMEAR basos 1 % notest ab. Not Available [facility] ([facility]) [address] [facility], [place], [address], 11/30/2022 11:13:35 11/29/19 23 11/29/2022 HEMAT OPATH CONSU LTATI ON, SMEAR neutrophils (absolute) 3.6 x10e3 /uL 1.4-7. 0 Not Available [facility] ([facility]) [address] [facility], [place], [address], 11/30/2022 11:13:35 11/29/19 23 11/29/2022 HEMAT OPATH CONSU LTATI ON, SMEAR lymphs (absolute) 2.2 x10e3 /uL 0.7-3. 1 Not Available [facility] ([facility]) [address] [facility], [place], [address], 11/30/2022 11:13:35 11/29/1911/29/2022 HEMAT OPATH CONSU LTATI ON, SMEAR monocytes(ab solute) 0.6 x10e3 /uL 0.1-0. 9 Not Available [facility] ([facility]) [address] [facility], [place], [address], 11/30/2022 11:13:35 11/29/1911/29/2022 HEMAT OPATH CONSU LTATI ON, SMEAR eos (absolute) 0.1 x10e3 /uL 0.0-0. 4 Not Available [facility] ([facility]) [address] [facility], [place], [address], 11/30/2022 11:13:35 11/29/1911/29/2022 HEMAT OPATH CONSU LTATI ON, SMEAR baso (absolute) 0.0 x10e3 /uL 0.0-0. 2 Not Available [facility] ([facility]) [address] [facility], [place], [address], 11/30/2022 11:13:35 11/29/19 23 11/29/2022 HEMAT OPATH CONSU LTATI ON, SMEAR immature granulocytes 0 % notest ab. Not Available [facility] ([facility]) [address] [facility], [place], [address], 11/30/2022 11:13:35 11/29/19 23 11/29/2022 HEMAT OPATH CONSU LTATI ON, SMEAR immature grans (abs) 0.0 x10e3 /uL 0.0-0. 1 Not Available [facility] ([facility]) [address] [facility], [place], [address], 11/30/2022 11:13:35 11/29/19 23 11/30/2022 HEMAT OPATH CONSU LTATI ON, SMEAR WBC Commen t No morph ologi c abnor malit y was detec agustín on the Wrigh t stain ed smear . Not Available [facility] ([facility]) [address] [facility], [place], [address], 11/30/2022 11:13:35 11/29/1911/30/2022 HEMAT OPATH CONSU LTATI ON, SMEAR RBC Commen t Hypoc hromi c red cells with sligh t aniso cytos is and poiki locyt osis. Not Available [facility] ([facility]) [address] [facility], [place], [address], 11/30/2022 11:13:35 11/29/1911/30/2022 HEMAT OPATH CONSU LTATI ON, SMEAR plts Commen t Plate let morph ology appea rs abi l. Not Available [facility] ([facility]) [address] [facility], [place], [address], 11/30/2022 11:13:35 11/29/1911/30/2022 HEMAT OPATH CONSU LTATI ON, SMEAR comments/rec ommendations Commen t Not Available [facility] ([facility]) [address] [facility], [place], [address], 11/30/2022 11:13:35 11/29/1911/30/2022 HEMAT OPATH CONSU LTATI ON, SMEAR pathologist Commen t Revie wed by: Grey Montgomery MD, Patho logis t Not Available [facility] ([facility]) [address] [facility], [place], [address], 11/30/2022 11:13:35 12/29/1901/01/2023 IGP,C TNGTV ,RFX APTIM A HPV ASCU chlamydia, nuc. acid amp Negati ve negati ve Not Available [facility] ([facility]) [address] [facility], [place], [address], 01/02/2023 17:09:55 12/29/1901/01/2023 IGP,C TNGTV ,RFX APTIM A HPV ASCU gonococcus, nuc. acid amp Negati ve negati ve Not Available [facility] ([facility]) [address] [place], [address], 01/02/2023 17:09:55 12/29/19 23 01/01/2023 IGP,C TNGTV ,RFX APTIM A HPV ASCU trich vag by JUAN Negati ve negati ve Not Available [facility] ([facility]) [address] [facility], [place], [address], 01/02/2023 17:09:55 12/29/19 23 01/02/2023 IGP,C TNGTV ,RFX APTIM A HPV ASCU diagnosis: Commen t abnormal EPITH ELIAL CELL ABNOR MALIT Y. LOW GRADE SQUAM OUS INTRA EPITH ELIAL LESIO N (LSIL ). FUNGA L ORGAN ISMS MORPH OLOGI ANTOINE CONSI STENT WITH RHODA DA SPECI ES ARE PRESE NT. Not Available [facility] ([facility]) [address] [facility], [place], [address], 01/02/2023 17:09:55 12/29/19 23 01/02/2023 IGP,C TNGTV ,RFX APTIM A HPV ASCU recommendati on: Commen t abnormal Sugge st follo w up as clini antoine appro priat e. Not Available [facility] ([facility]) [address] [facility], [place], [address], 01/02/2023 17:09:55 12/29/19 23 01/02/2023 IGP,C TNGTV ,RFX APTIM A HPV ASCU specimen adequacy: Commen t Satis facto ry for evalu ation . Not Available [facility] ([facility]) [address] [facility], [place], [address], 01/02/2023 17:09:55 12/29/19 23 01/02/2023 IGP,C TNGTV ,RFX APTIM A HPV ASCU clinician provided ICD10: Ni magana Z01.4 19 Not Available [facility] ([facility]) [address] [place], [address], 01/02/2023 17:09:55 12/29/19 23 01/02/2023 IGP,C TNGTV ,RFX APTIM A HPV ASCU performed by: Yvoani Andersont leatha francis t (ASCP ) Not Available [facility] ([facility]) [address] [place], [address], 01/02/2023 17:09:55 12/29/19 23 01/02/2023 IGP,C TNGTV ,RFX APTIM A HPV ASCU electronical ly signed by: Ni prieto MD, Patho logis t Not Available [facility] ([facility]) [address] [place], [address], 01/02/2023 17:09:55 12/29/19 23 01/02/2023 IGP,C TNGTV ,RFX APTIM A HPV ASCU . . Not Available [facility] ([facility]) [address] [place], [address], 01/02/2023 17:09:55 12/29/19 23 01/02/2023 IGP,C TNGTV ,RFX APTIM A HPV ASCU pathologist provided ICD10: Ni magana R87.6 12, R87.5 Not Available [facility] ([facility]) [address] [place], [address], 01/02/2023 17:09:55 12/29/19 23 01/02/2023 IGP,C TNGTV ,RFX APTIM A HPV ASCU note: Ni magana The Pap smear is a scree demetrio test desabigail pratima to aid in the detec tion of yahaira ligna nt and malig nant condi tions of the uteri ne cervi x. It is not a diagn ostic proce dure and shoul d not be used as the sole means of detec ting cervi krista cance r. Both false -posi tive and false -nega tive repor ts do occur . Not Available [facility] ([facility]) [address] [place], [address], 01/02/2023 17:09:55 12/29/19 23 01/02/2023 IGP,C TNGTV ,RFX APTIM A HPV ASCU test methodology: Commen t This liqui d based ThinP rep(R ) pap test was jaime andujar with the use of an image guide goran keller. Not Available [facility] ([facility]) [address] [place], [address], 01/02/2023 17:09:55 12/29/19 23 01/02/2023 IGP,C TNGTV ,RFX APTIM A HPV ASCU . Commen t The HPV DNA refle x crite garry were not met with this speci men resul t there fore, no HPV testi ng was perfo rmed. Not Available [facility] ([facility]) [address] [place], [address], 01/02/2023 17:09:55 08/14/19 24 08/14/[address] revie w kappa light chain 26.5 mg/L 3.3-19 .4 abnormal hemat olgis t work up- plan to monit or and repea t labs in 4 month s Not Available Not Available 08/15/2023 13:07:19 08/14/19 24 08/14/[address] revie w kappa/labda ratio 1.68 026-1. 65 abnormal hemat olgis t work up- plan to monit or and repea t labs in 4 month s Not Available Not Available 08/15/2023 13:07:19 12/03/19 24 12/05/2023 IGP,C TNGTV ,APT HPV,R FX16/ 18,45 HPV aptima NEGATI VE negati ve This nucle ic acid ampli ficat ion test detec ts fourt een high- risk HPV types (16,1 8,31, 33,35 ,39,4 5,51, 52,56 ,58,5 9,66, 68) witho ut diffe renti ation . Not Available [facility] ([facility]) [address] [facility], [place], [address], 12/13/2023 16:19:35 12/03/19 24 12/05/2023 IGP,C TNGTV ,APT HPV,R FX16/ 18,45 chlamydia, nuc. acid amp NEGATI VE negati ve Not Available [facility] ([facility]) [address] [facility], [place], [address], 12/13/2023 16:19:35 12/03/19 24 12/05/2023 IGP,C TNGTV ,APT HPV,R FX16/ 18,45 gonococcus, nuc. acid amp NEGATI VE negati ve Not Available [facility] ([facility]) [address] [facility], [place], [address], 12/13/2023 16:19:35 12/03/19 24 12/05/2023 IGP,C TNGTV ,APT HPV,R FX16/ 18,45 trich vag by JUAN NEGATI VE negati ve Not Available [facility] ([facility]) [address] [place], [address], 12/13/2023 16:19:35 12/03/19 24 12/13/2023 IGP,C TNGTV ,APT HPV,R FX16/ 18,45 diagnosis: COMMEN T* NEGAT MEG FOR INTRA EPITH ELIAL LESIO N OR MALIG BLAIR . REACT MEG CELLU NIYAH CRUZ ES AND/O R REPAI R ARE PRESE NT. Previ ously Repor agustín As: NEGAT MEG FOR INTRA EPITH ELIAL LESIO N OR MALIG BLAIR . REACT MEG CELLU NIYAH CRUZ ES AND/O R REPAI R ARE PRESE NT. TRICH OMONA S VAGIN JOE IS PRESE NT. Rosana d out on: 12/09 Not Available [facility] ([facility]) [address] [facility], [place], [address], 12/13/2023 16:19:35 12/03/19 24 12/13/2023 IGP,C TNGTV ,APT HPV,R FX16/ 18,45 specimen adequacy: NI Magana* Satis facto ry for evalu ation . Endoc ervic al and/o r squam ous metap lasti c cells (endo cervi krista compo nent) are prese nt. Not Available [facility] ([facility]) [address] [facility], [place], [address], 12/13/2023 16:19:35 12/03/19 24 12/13/2023 IGP,C TNGTV ,APT HPV,R FX16/ 18,45 clinician provided ICD10: NI Magana* Z87.4 2 Not Available [facility] ([facility]) [address] [facility], [place], [address], 12/13/2023 16:19:35 12/03/19 24 12/13/2023 IGP,C TNGTV ,APT HPV,R FX16/ 18,45 amended report: NI Magana This is an amend ed repor t becliss se the accou nt bundy d to reque st that the speci men be revie wed. There is a dave reyna in the diagn osis. Not Available [facility] ([facility]) [address] [facility], [place], [address], 12/13/2023 16:19:35 12/03/19 24 12/13/2023 IGP,C TNGTV ,APT HPV,R FX16/ 18,45 performed by: NI falk, Cytot leatha magana (ASCP ) Not Available [facility] ([facility]) [address] [place], [address], 12/13/2023 16:19:35 12/03/19 24 12/13/2023 IGP,C TNGTV ,APT HPV,R FX16/ 18,45 electronical ly signed by: NI Schafer MD, Patho penny t Not Available [facility] ([facility]) [address] [facility], [place], [address], 12/13/2023 16:19:35 12/03/19 24 12/13/2023 IGP,C TNGTV ,APT HPV,R FX16/ 18,45 . . Not Available [facility] ([facility]) [address] [facility], [place], [address], 12/13/2023 16:19:35 12/03/19 24 12/13/2023 IGP,C TNGTV ,APT HPV,R FX16/ 18,45 note: NI Magana The Pap smear is a scree demetrio test desig pratima to aid in the detec tion of yahaira ligna nt and malig nant condi tions of the uteri ne cervi x. It is not a diagn ostic proce dure and shoul d not be used as the sole means of detec ting cervi krista cance r. Both false -posi tive and false -nega tive repor ts do occur . Not Available [facility] ([facility]) [address] [facility], [place], [address], 12/13/2023 16:19:35 12/03/19 24 12/13/2023 IGP,C TNGTV ,APT HPV,R FX16/ 18,45 test methodology: NI Magana This liqui d based ThinP rep(R ) pap test was scree pratima with the use of an image guide goran keller. Not Available [facility] ([facility]) [address] [facility], [place], [address], 12/13/2023 16:19:35 12/03/19 24 12/13/2023 IGP,C TNGTV ,APT HPV,R FX16/ 18,45 HPV genotype reflex COMMEN T Crite garry not met, HPV Genot ype not perfo rmed. Not Available [facility] ([facility]) [address], [place], [address], 12/13/2023 16:19:35 Result Notes None recorded. Problems Name Problem SNOMED Code Status Onset Date Resolution Date Notes Provider Name and Address Organization Details Recorded Time History and physical examinat ion, pre-empl oyment Completed 201704/27/2022 Gordy Mcgowan MD Attn: Cheri hernandez,[address] [place] [address], [place], [address], [facility] - SI 3 14:43:20 Influenz a caused by Influenz a B virus [id number] Completed 201904/27/2022 Gordy Mcgowan MD Attn: Cheri hernandez,[address] [place], [address], [facility] - [facility] 3 14:43:24 Pruritus of vagina 77329366 Completed 202004/27/2022 Gordy Mcgowan MD Attn: Cheri hernandez,[address] [place], [address], [place] 3 14:43:37 Irritabl e bowel syndrome 50761439 Active 2021 Gordy Mcgowan MD Attn: Cheri hernandez,[address] [place], [address], [place] 2 14:41:20 Chronic constipa tion 555497509 Active 2021 Gordy Mcogwan MD Attn: Cheri hernandez,[address] [place], [address], [facility] - [facility] 2 14:56:33 Mean corpuscu lar volume below referenc e range 196787791 Active 2021 Gordy Mcgowan MD Attn: Cheri hernandez[address] [facility], [place], [address], [place] [facility] 2 15:02:15 Vitamin D deficien cy 87392966 Active 2021 Gordy Mcgowan MD Attn: Cheri hernandez,[address] [facility], [place], [address], [place] [facility] 2 15:02:40 Thyroid stimulat ing hormone level below referenc e range 290670744 Completed 202104/27/2022 Gordy Mcgowan MD Attn: Cheri hernandez,[address] [facility], [place], [address], [place] [facility] 3 14:42:40 Left sided abdomina l pain 257540380 Active 2021 Gordy Mcgowan MD Attn: Cheri hernandez,[address] [facility], [place], [address], [place] [facility] 2 15:22:16 Purpuric rash 732334926 Active 2021 Gordy Mcgowan MD Attn: Cheri hernandez,[address] [facility], [place], [address], [place] [facility] 2 15:23:31 Iron deficien cy anemia 15478183 Active 2022 Dilia Rogers [place] null, [place] [facility] 3 09:17:49 Abnormal cervical Papanico laou smear 407340647 Active 202201/01/23- LSIL- recommend f/u pap in 1 year Gordy Mcgowan MD Attn: Cheri hernandez,[address] [facility], [place], [address], [place] [facility] 3 18:48:13 [place] light chain measurem ent Active 2023 Hematolog y consult note: - Elevated dash light chain - Beta % elevated - Free kappa lambda ratio - plan per hematolog y is to regularly monitor labs (every 4 months) Gordy Mcgowan MD Attn: Cheri g,[address] [facility], [place], [address], [facility] - SI 4 10:18:28 Problem Notes None recorded. Procedures Surgical History Date Name Laterality Status Provider Name and Address Organization Details Recorded Time 4 Date of Last Pap Smear completed Samantha David RN [facility] 12/19/2023 15:57:47 3 Generic Procedure completed Gordy Mcgowan MD Attn: Accounting,[address] [facility], [place], [address], [facility] - SI 12/31/2022 13:00:51 1 Breast reduction completed KRISTIAN White Attn: Accounting,[address] [facility], [place], [address], [facility] - SI 04/24/2021 14:16:38 Orthopedic Surgery completed DWAYNE Oneill [place] - [facility] 10/13/2019 14:02:45 Imaging Results None recorded. Procedure Notes None recorded. Medical Equipment None Reported. Allergies No known drug allergies Medications Name Sig Start Date Stop Date Status Note LastModified by Organization Details LastModified Time cyclobenzap rine 10 mg tablet Take 1 tablet 3 times a day by oral route as needed. 03/28 completed Not Available Not Available Not Available Colace 100 mg capsule Take 1 capsule every day by oral route for 60 days. 2022 active Not Available Not Available Not Avai lable Vitamin C 500 mg tablet TAKE 1 TABLET BY MOUTH EVERY OTHER DAY 10/18 completed Not Available Not Available Not Available ibuprofen 800 mg tablet TAKE 1 TABLET BY MOUTH THREE TIMES A DAY NEEDED 04/24 completed Not Available Not Available Not Available fluconazole 150 mg tablet TAKE 1 TABLET BY MOUTH 04/27 completed Not Available Not Available Not Available valacyclovi r 1 gram tablet TAKE 1 TABLET BY MOUTH EVERY 12 HOURS FOR 10 DAYS 02/12 completed Not Available Not Available Not Available hydrocodone 5 mg-acetamin ophen 325 mg tablet 04/24 completed Not Available Not Available Not Available ondansetron HCl 4 mg tablet TAKE 1-2 TABLETS BY MOUTH EVERY 8 HOURS NEEDED FOR NAUSEA - 1ST LINE. 01/01 completed Not Available Not Available Not Available Tubersol 5 tub. unit/0.1 mL intradermal injection solution Administe r .1ml interderm ally 11/28 completed Not Available Not Available Not Available terconazole 0.8 % vaginal cream INSERT 1 APPLICATO RFUL VAGINALLY EVERY DAY AT BEDTIME FOR 3 DAYS 05/10 completed Not Available Not Available Not Available bacitracin 500 unit/gram topical ointment 02/12 completed Not Available Not Available Not Available penicillin V potassium 500 mg tablet 500 MG ORALLY EVERY 12 HOURS FOR 10 DAYS 10/18 completed Not Available Not Available Not Available metronidazo le 500 mg tablet TAKE 1 TABLET BY MOUTH TWICE A DAY FOR 7 DAYS 04/27 completed Not Available Not Available Not Available acetaminoph en 300 mg-codeine 30 mg tablet TAKE 1 TABLET EVERY 4 6 HOURS NEEDED FOR DENTAL PAIN. DR NOT COVERED BY INSURANCE 04/24 completed Not Available Not Available Not Available ciprofloxac in 500 mg tablet TAKE 1 TABLET BY MOUTH TWICE A DAY FOR 5 DAYS 10/18 completed Not Available Not Available Not Available triamcinolo ne acetonide 0.1 % topical cream APPLY TO AFFECTED AREA TWICE A DAY 04/24 completed Not Available Not Available Not Available amoxicillin 500 mg tablet TAKE 1 TABLET EVERY [address] NOT COVERED UNDER INSURANCE 04/24 completed Not Available Not Available Not Available ketorolac 10 mg tablet TAKE 1 TABLET BY MOUTH EVERY 6 HOURS NEEDED FOR MILD OR MORE SEVERE PAIN FOR UP TO 5 DAYS. 01/01 completed Not Available Not Available Not Available amoxicillin 875 mg tablet TAKE 1 TABLET BY MOUTH EVERY 12 HOURS WITH MEALS FOR 10 DAYS 11/22 completed Not Available Not Available Not Available cephalexin 500 mg capsule 02/12 completed Not Available Not Available Not Available erythromyci n 5 mg/gram (0.5 %) eye ointment USE 1 APPLICATI ON INTO LEFT EYE FOUR TIMES DAILY FOR 7 DAYS 02/12 completed Not Available Not Available Not Available ferrous sulfate 325 mg (65 mg iron) tablet TAKE 1 TABLET BY MOUTH EVERY OTHER DAY active Not Available Not Available No t Available tobramycin 0.3 % eye drops 05/16 completed Not Available Not Available Not Available mupirocin 2 % topical ointment APPLY TOPICALLY TWICE A DAY 12/02 completed Not Available Not Available Not Available ibuprofen 600 mg tablet TAKE 1 TABLET BY MOUTH EVERY 6 HOURS NEEDED FOR PAIN 10/19 completed Not Available Not Available Not Available clotrimazol e 1 % topical cream APPLY TO THE AFFECTED AND SURROUNDI NG AREAS OF SKIN BY TOPICAL ROUTE 2 TIMES PER DAY IN THE MORNING AND EVENING for 14 days 02/03 completed Not Available Not Available Not Available loratadine 10 mg tablet TAKE 1 TABLET BY MOUTH EVERY DAY 04/24 completed Not Available Not Available Not Available Bactrim DS 800 mg-160 mg tablet Take 1 tablet every 12 hours by oral route for 10 days. 2023 active Not Available Not Available Not Avai lable nitrofurant oin monohydrate /macrocryst als 100 mg capsule TAKE 1 CAPSULE BY MOUTH 2 TIMES A DAY FOR 7 DAYS ANTIBIOTI C FOR URINARY TRACT INFECTION . 11/22 completed Not Available Not Available Not Available ferrous gluconate 324 mg (38 mg iron) tablet Take 1 tablet 3 times a week by oral route before meals for 90 days. 10/18 completed Not Available Not Available Not Available cholecalcif karly (vitamin D3) 1,250 mcg (50,000 unit) capsule TAKE 1 CAPSULE EVERY WEEK BY MOUTH NOT COVERED 10/19 completed Not Available Not Available Not Available B12 active Not Available Not Availa ble Not Available Vitals Date Recorded Body height Body mass index (BMI) Body weight Body temperature Heart rate Respiratory rate Oxygen saturation Oxygen saturation in Arterial blood by Pulse oximetry Systolic blood pressure Diastolic blood pressure Provider Name and Address Organization Details Last Updated DateTime 3 160.02 cm 36.1 kg/m2 55225.8 4 g 98.2 [degF] 73 /min 16 /min 100 % 100 % 124 mm[Hg] 80 mm[Hg] Sylvia love [place] - [facility] 3 11:43:18 Date Recorded Body height Provider Name an d Address Organization Details Last Updated DateTime 01/22/2023 160.02 cm Dilia Rogers [place] - [facility] 2022 13:47:37 Date Recorded Body temperature Provider Name a nd Address Organization Details Last Updated DateTime 01/22/2023 97.5 [degF] Vidhya Elmore MA [facility] 01/22/2023 13:52:24 Date Recorded Body height Body mass index (BMI) Body weight Oxygen saturation Oxygen saturation in Arterial blood by Pulse oximetry Heart rate Body temperature Respiratory rate Systolic blood pressure Diastolic blood pressure Provider Name and Address Organization Details Last Updated DateTime 160.02 cm 36.2 kg/m2 84003.2 9 g 98 % 98 % 61 /min 97.1 [degF] 16 /min 124 mm[Hg] 86 mm[Hg] Sylvia love MA [facility] 4 10:09:06 Date Recorded Body height Body mass index (BMI) Body weight Systolic blood pressure Diastolic blood pressure Provider Name and Address Organization Details Last Updated DateTime 12/03/2023 160.02 cm 37.9 kg/m2 22705.77 g 123 mm[Hg] 86 mm[Hg] DWAYNE Oneill [facility] 4 14:08:16 Date Recorded Body height Body mass index (BMI) Body weight Provider Name and Address Organization Details Last Updated DateTime 12/31/2023 160.02 cm 38.2 kg/m2 28839.81 g Vidhya Elmore MA [facility] 12/31/2023 09:25:59 Date Recorded Body height Body mass index (BMI) Body weight Respiratory rate Heart rate Systolic blood pressure Diastolic blood pressure Provider Name and Address Organization Details Last Updated DateTime 160.02 cm 37.9 kg/m2 85203.7 7 g 16 /min 83 /min 129 mm[Hg] 87 mm[Hg] Mayuri Riggs [facility] 4 10:12:32 Social History Question Answer Notes LastModified by Organizat ion Details LastModified Time Tobacco Smoking Status Never Smoker DWAYNE Knight, [facility] 08/14/2018 15:32:59 What Is Your Level Of Alcohol Consumption? None Information not available 08/14/2018 What Is Your Level Of Caffeine Consumption? Moderate Tea Information not available 08/14/2018 In The 14 Days Before Symptom Onset, Have You Had Close Contact With A Laboratory-confir med COVID-19 While That Case Was Ill? No Information not available 05/16/2021 In The 14 Days Before Symptom Onset, Have You Had Close Contact With A Person Who Is Under Investigation For COVID-19 While That Person Was Ill? No Information not available 05/16/2021 Have You Been To An Area Known To Be High Risk For COVID-19? No Information not available 05/16/2021 Are You Currently Employed? Yes Information not available 05/16/2021 Do You Or Have You Ever Used E-cigarettes Or Vape? 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 02/04/2024 [email or web address] Information not available 02/04/2024 Are You Sexually Active? Yes [email or web address] Information not available 02/12/2022 Do You Have Smoke And Carbon Monoxide Detectors In Your Home? Yes [email or web address] Information not available 02/12/2022 Are You Passively Exposed To Smoke? No [email or web address] Information no t available 02/12/2022 Do You Or Have You Ever Used Smokeless Tobacco? Never Used Smokeless Tobacco Information not available 10/13/2019 How Much Tobacco Do You Smoke? No Information not available 10/13/2019 Do You Use Any Illicit Or Recreational Drugs? No [email or web address] Information not available 02/12/2022 Has Tobacco Cessation Counseling Been Provided? Yes Information not available 04/27/2022 On What Date Was Tobacco Cessation Counseling Provided? 04/24/2023 [email or web address] Information not available 04/24/2023 Do You Or Have You Ever Used Any Other Forms Of Tobacco Or Nicotine? No [email or web address] Information not available 02/12/2022 Sex: Female Functional Status None recorded. Mental Status None recorded. Family History Relationship Description Onset Age of this Age Resolved Age Notes LastModified by Organization Details LastModified Time Father Hypertensive disorder [email or web address] Not available 2018 15:25:05 Mother Hypertensive disorder [email or web address] Not available 2018 15:25:43 Notes:10/19/22 Medical History Condition Response Other N High Blood Pressure N Depression N Blood Clots N Headaches/Migraines N Anxiety Disorder N Muscle, Joint, or Bone Problems N Polyps N Infertility N Acid Reflux (GERD) N Cancer N Kidney or Bladder Problems N Acne N Have you had a mammogram in the last yea r? N Eating Disorder N Asthma N Hepatitis N Breast Cancer N Lung Disease N Breast Problem N Anesthesia Complications N Endometriosis N High Cholesterol N Liver Disease N Thyroid Problems N GI Problems Y Anemia N Diabetes N Ovarian Cancer N Blood Transfusions N Seizures/Epilepsy N Have you had a colonoscopy in the last 1 0 years? N Abuse/Domestic Violence N Heart Disease N Pre-Eclampsia N Osteoporosis N Gynecological History Statement/Question Response Abnormal Pap Y Flow Moderate Date of LMP 01/09/2024 STIs/STDs N HPV Vaccine Y Duration of Flow (days) 5 Age at Menarche 9 Current Control Method Condoms Frequency of Cycle (Q days) 28 Sexually Active? Y Menses Monthly Y Date of Last Pap Smear 12/03/2023 Sexual Problems? N LMP Definite Desired Control Method Condoms Obstetrics History GPAL:G 0 P 0 0 0 0 Immunizations Vaccine Type Date Status Note Provider Nam e and Address Organization Details Recorded Time varicella 0 completed Gordy Mcgowan MD Attn: Accounting, [address] [place], [address], [place] [facility] 02/11/2022 20:27:32 MMR 4 completed Gordy Mcgowan MD Attn: [address]ing[address] [place], [address], [place] [facility] 02/11/2022 20:27:32 Hep A, ped/adol, 2 dose 4 completed Gordy Mcgowan MD Attn: Accounting[address] [place], [address], [place] [facility] 02/11/2022 20:27:32 HPV, quadrivalent 3 completed Gordy Mcgowan MD Attn: Accounting[address] [place], [address], [place] [facility] 02/11/2022 20:27:32 IPV 9 completed Gordy Mcgowan MD Attn: Accounting,[address], [place], [address], [place] [facility] 02/11/2022 20:27:32 MMR 0 completed Gordy Mcgowan MD Attn: Accounting,[address], [place], [address], [place] [facility] 02/11/2022 20:27:32 Influenza, split virus, quadrivalent, PF 4 completed Gordy Mcgowan MD Attn: Accounting,[address], [place], [address], [place] [facility] 02/11/2022 20:27:32 Hib-Hep B 0 completed Gordy Mcgowan MD Attn: Accounting,[address], [place], [place], [address] [place] [address], [place] [facility] 02/11/2022 20:27:33 Hib-Hep B 9 completed Gordy Mcgowan MD Attn: Accounting,[address], [place], [place], [address] [place] [address], [place] [facility] 02/11/2022 20:27:33 IPV 9 completed Gordy Mcgowan MD Attn: Accounting,[address], [place], [address], [place] [facility] 02/11/2022 20:27:33 Tdap 3 completed Gordy Mcgowan MD Attn: Accounting,[address], [place], [address], [place] [facility] 02/11/2022 20:27:33 DTaP 4 completed Gordy Mcgowan MD Attn: Accounting,[address], [place], [address], [place] [facility] 02/11/2022 20:27:33 DTaP 9 completed Gordy Mcgowan MD Attn: Accounting,[address], [place], [address], [place] [facility] 02/11/2022 20:27:33 IPV 0 completed Gordy Mcgowan MD Attn: Accounting,[address], [place], [place], [address] [place] [address], [place] [facility] 02/11/2022 20:27:33 HPV, quadrivalent 4 completed Gordy Mcgowan MD Attn: Accounting,[address], [place], [address] [place] [address], [place] [facility] 02/11/2022 20:27:33 meningococcal MCV4P 3 completed Gordy Mcgowan MD Attn: Accounting,[address] [facility], [place], [place], [address] [place] [address], [place] [facility] 02/11/2022 20:27:33 meningococcal MCV4P 7 completed Godry Mcgowan MD Attn: Accounting,[address] [facility], [place], [address] [place] [address], [place] [facility] 02/11/2022 20:27:33 IPV 4 completed Gordy Mcgowan MD Attn: Accounting,[address] [facility], [place], [address] [place] [address], [place] [facility] 02/11/2022 20:27:33 meningococcal B, OMV 7 completed Gordy Mcgowan MD Attn: Accounting,[address] [facility], [place], [address] [place] [address], [place] [facility] 02/11/2022 20:27:33 Hib-Hep B 9 completed Gordy Mcgowan MD Attn: Accounting,[address] [facility], [place], [place], [address] [place] [address], [place] [facility] 02/11/2022 20:27:33 Hep A, ped/adol, 2 dose 3 completed Gordy Mcgowan MD Attn: Accounting,[address] [facility], [place], [address] [place] [address], [place] [facility] 02/11/2022 20:27:33 DTaP 9 completed Gordy Mcgowan MD Attn: Accounting,[address] [facility], [place], [address], [place] [facility] 02/11/2022 20:27:33 varicella 3 completed Gordy Mcgowan MD Attn: Accounting,[address] [facility], [place], [address], [place] [facility] 02/11/2022 20:27:33 DTaP 0 completed Gordy Mcgowan MD Attn: Accounting,[address] [facility], [place], [address], [facility] - [facility] 02/11/2022 20:27:33 meningococcal B, OMV 8 completed Not Available [email or web address] 03/14/2019 02:41:58 Tdap 3 completed JOHN FANG MD Attn: Accounting,[address] [facility], [place], [address] [place] [address], [facility] - [facility] 12/06/2022 10:01:51 Influenza, split virus, quadrivalent, preservative 3 completed JOHN FANG MD Attn: Accounting,[address] [facility], [place], [address] [place] [address], [place] [facility] 01/30/2023 09:29:37 Past Encounters Encounter ID Performer Location Encounter Start Date Encounter Closed Date Diagnosis/Indication Diagnosis SNOMED-CT Code Diagnosis ICD10 Code Diagnosis Note [id number] KRISTIAN Vides 14 IM 4 [facility] [place] [address] 10/14/2017 15:52:41 10/16/2017 09:56:10 History and physical examination, pre-employment 378896724 Z02.1 normal exam clear for work Requires a meningitis vaccination 479237248 Z28.3 [id number] KRISTIAN Vides [address] [place] [address] [address] 08/14/2018 15:18:11 08/15/2018 10:31:03 Thoracic back pain 224046524 M54.6 Counseled on back pain-Ice/h eat alternate to back. Ibuprofen/ Flexeril for pain/tight ness as needed with food. Referral to breast surgeon Macromastia 174452718 N6 2 Body mass index 30+ - obesity 694831498 Z68.35 Elevated blood-pressure reading without diagnosis of hypertension 140018263 R03.0 f/u 2 weeks for nurse visit to recheck bp Depression screening 171 052275 Z13.31 [id number] KRISTIAN Vides 14 IM 4 [facility] [place] [address] 09/01/2018 16:27:09 09/02/2018 10:09:20 [id number] KRISTIAN Vides 14 IM 4 [facility] [place] [address] 10/22/2018 14:43:32 10/23/2018 09:58:11 Adult health examination 335703288 Z00.00 Chronic constipation 236 803921 K59.09 Encouraged to increase fiber intake to 25 grams daily via diet, gummies, bars, powder. Probiotic as directed. Encouraged to drink 8-10 glasses of water a day. Walk daily. Counseled on abdominal pain and testing to be done. Encouraged low fat diet, no alcohol or caffeinate d beverages. f/u 2 months if no changes Thoracic back pain 56733 8004 M54.6 Counseled on back pain-Ice/h eat alternate to back. Ibuprofen/ Flexeril for pain/tight ness as needed with food. Awaits breast surgeon evaluation [id number] KRISTIAN Vides 14 IM 4 [facility] [place] [address] 12/29/2018 14:35:33 12/30/2018 15:20:06 Tuberculosis screening 380752047 Z11.1 PPD today Macromastia 493278746 N6 2 will discuss with surgeon if she decides to do surgery [id number] KRISTIAN Vides 14 IM 4 [facility] [place] [address] 04/20/2019 13:35:16 04/21/2019 12:20:29 Influenza-like symptoms 216861031 R68.89 Influenza caused by Influenza B virus 89251489 J10.1 Counseled on influenza- refused tamiflu-ot c treatment- rest and fluids-no work till Saturday Body mass index 30+ - obesity 297077913 Z68.37 [id number] KRISTIAN Wihte 14 OB 4 [facility] [address] [place] [address] 10/13/2019 13:59:09 10/14/2019 09:46:25 High risk sexual behavior 986122728 Z72.51 Pt to come to office for blood work and to have urine collected and sent to lab. Counseled on safe sex, condom use and STD precaution s discussed screening completed per patient's request [facility] 736816931 Z30.09 Discussed contracept ion methods. Patient not interested in any methods other than condoms at this time. Patient aware of her increased risk for unplanned . Patient advised to do 400 mcg folic acid supplement to help prevent against NTD if unplanned occurs [id number] KRISTIAN White [address] [place] [address] [address] [place] [address] 11/26/2019 14:24:30 11/27/2019 09:49:35 Gynecologic examination 13345908 Z01.419 -Educated on the importance of SBE and awareness. -Discussed the importance of cervical cancer screenings -Educated osteoporos is prevention including calcium rich foods, weight bearing exercise. -Discussed the importance of exercise. -Nutrition discussed and the importance of a diet rich in fruits, vegetable, whole grains, and lean proteins. -Counseled regarding prevention of STD's and screening options, condom use and prevention . -Advised avoidance of tobacco, alcohol, and drugs. -Discussed sun safety and the importance of sunscreen. Venereal d isease screening 555064249 Z11.3 swab collected and sent to lab. Blood work orders already in chart from last visit for patient to complete. Counseled on safe sex, condom use and STD precaution s discussed screening completed per patient's request [id number] MD Lisa Condon 14 OB 4 [facility] [address] [place] [address] 03/28/2020 16:35:35 03/29/2020 10:54:41 Mass of right breast [id number] 7601611 N63.10 Breast US ordered. Pt given order to schedule. Pt educated on importance of follow up. Pt notified to call office if issues occur. Follow up after [place] [id number] KRISTIAN White [address] [place] [address] 10/12/2020 11:04:52 10/13/2020 05:48:08 Pruritus of vagina 88523375 L29.3 Educated patient on vulvar hygiene and use condoms during sex. swab obtained and sent to lab. [facility] surveillance 211429182 Z30.09 Discussed contracept ion methods. Patient not interested in any methods other than condoms at this time. Patient aware of her increased risk for unplanned . Patient advised to do 400 mcg folic acid supplement to help prevent against NTD if unplanned occurs [id number] KRISTIAN White 14 4 [facility] [address] [place] [address] 04/24/2021 13:46:02 04/25/2021 05:56:14 Gynecologic examination 31832017 Z01.419 -Educated on the importance of SBE and awareness. -Discussed the importance of cervical cancer screenings -Educated osteoporos is prevention including calcium rich foods, weight bearing exercise. -Discussed the importance of exercise. -Nutrition discussed and the importance of a diet rich in fruits, vegetable, whole grains, and lean proteins. -Counseled regarding prevention of STD's and screening options, condom use and prevention . -Advised avoidance of tobacco, alcohol, and drugs. -Discussed sun safety and the importance of sunscreen. Vaginal irritation 94506 6004 N89.8 Educated patient on vulvar hygiene and use condoms during sex. swab obtained and sent to lab. Body mass index 30+ - obesity 416510214 Z68.35 Pt educated on risks and notified of importance lifestyle changes. Fasting labs ordered for pt to complete. Follow up with PCP. [facility] surveillance 828976380 Z30.09 Discussed contracept ion methods. Patient not interested in any methods other than condoms at this time. Patient aware of her increased risk for unplanned . Patient advised to do 400 mcg folic acid supplement to help prevent against NTD if unplanned occurs [id number] KRISTIAN White 14 4 [facility] [place] [address] 05/10/2021 10:39:24 05/11/2021 05:53:45 Vaginal discharge [id number] N89.8 Educated patient on vulvar hygiene and use condoms during sex. swab obtained and sent to lab. pt treated empiricall y for bv.Pt educated on management and medication . Pt notified to call office if symptoms worsen or if symptoms continue after treatment. Pt educated on prevention of BV. pt denies chance of [id number] MD Lisa Herrera 14 IM 4 [facility] [place] [address] 05/16/2021 13:44:41 05/17/2021 15:59:04 Irritable bowel syndrome [id number] K58.9 -keep a log of symptoms, increase fiber intake.-in structed to log diet in relation to symptoms. will avoid trigger foods.-PHQ -9/GAD7 at next visit Chronic constipation 236 309575 K59.09 -patient has cyclical constipati on, possibly related to hormone changes.- will place on a bowel regimen. Mean corpu scular volume below reference range 330579637 R71.8 normal hgb, MCV 77. likely MIRNA.plan to prescribe ferrous sulfate if indicated. Thyroid st imulating hormone level below reference range 444892980 R94.6 will follow up in 6 months with repeat labs Left sided abdominal pain 842397311 R10.9 -Pain elicited with palpation. assoc. chronic constipati on. no blood in stool.-UA also pending r/o kidney stone- r/o preg/ectop ic Purpuric rash 624110241 D69.2 -likely fungal rash on patients chest. pruritic. [id number] KRISTIAN White 14 OB 4 [facility] [address] [place] [address] 11/22/2021 11:20:36 11/23/2021 07:36:54 Furuncle of groin 64819861 L02.224 Discussed options. Pt does not want oral abx and opts for topical. Pt educated on medication and used of wet warm compresses . Pt educated on prevention as well. Pt notified to follow up in 2 weeks if not healed and call office if symptoms worsen. [id number] KRISTIAN White 14 OB 4 [facility] [place] [address] 01/01/2022 10:45:34 01/02/2022 08:53:39 High risk sexual behavior 473104946 Z72.51 Pt to come to office for blood work and to have urine collected and sent to lab. Counseled on safe sex, condom use and STD precaution s discussed screening completed per patient's request Eruption [id number] R21 Labs ordered and viral culture completed. Discussed possible HSV 2 outbreak vs folliculit is. Will treat pt empiricall y for both. pt educated on treatment. Pt educated on hsv 2 and folliculit is. Pt educated on STI prevention . Discussed need to notify partner if positive. Follow up in 1 week. Pt educated on warning signs and notified when to call office. Lower abdominal pain 545 27914 R10.30 Pt reports resolved. Pt notified to call office if return and if severe go to ER. Iron defic iency anemia 77196443 D50.9 Pt denies heavy menses. pt opts to follow up with PCP. Pt educated on importance of treatment. [id number] MD Lisa DEL CID 14 4 [facility] [address] [place] [address] 02/12/2022 11:14:48 02/20/2022 15:31:41 Increased frequency of urination 846889126 R35.0 -- no burning on urination. Associated increased thirst and fatigue.-- family h/o of DM Iron defic iency anemia 54458085 D50.9 -- H/o MIRNA; not currently taking iron tablets-- reporting to fatigue-- will restart ferrous sulfate if indicated; also prescribe docusate. Irritable bowel syndrome 38740525 K58.9 -- keep a log of symptoms, increase fiber intake.-- instructed to log diet in relation to symptoms. will avoid trigger foods.-- restart metamucil- will peanut picker OTC-- discussed FODMAP diet- increase fruit and veg. intake. Would rather get fiber from natural foods vs fiber supplement ation.-- bloating symptom also could be related to - HCG pending (separate order set) Venereal d isease screening 979222488 Z11.3 Patient has negative STD screen 01/01/22.-- reporting to unprotecte d sex. Discussed risk of STD and need for abstinence or barrier protection .-- she declines contracept ion. Advised to take a vitamin Burn of skin 823416413 T 30.0 -- healing well, no erythema or discharge. -- new skin has grown and lesion is near fully recovered. [id number] MD Lisa Carbajal 14 IM 4 [facility] [place] [address] 04/27/2022 14:40:16 04/30/2022 10:34:32 Mean corpuscular volume below reference range 715856739 R71.8 normal hgb, MCV 77. likely MIRNA.plan to prescribe ferrous sulfate if indicated. Obesity 904462094 E66.9 BMI- 35.4 History of iron deficiency 813626663 Z86.39 -- patient had some constipati on and stopped taking iron tablets.-- - will recheck levels and tx if indicated- - will also provide miralax with docusate-- will attempt to treat with liquid iron if needed Hyperglycemia 50634099 R 73.9 -- recheck for prior elevated A1C-- has started lifestyle changes Iron deficiency 74645387 E61.1 - Previous- 02/03/22 labs- Iron sat 9, ferritin 10, Hgb 12.0, Mcv 78- will recheck labs- she stopped taking iron supplement s due to constipati on [id number] MD Lisa Loera 14 IM 4 [facility] [place] [address] 10/19/2022 08:46:04 10/24/2022 12:50:36 Obesity 058089298 E66.9 BMI- 35.4 Active or passive immunization 824271508 Z23 patient due for Tdap Impacted c erumen of bilateral ears [id number] 474977 H61.23 - TMs not visible on exam, patient reported muffled hearing Iron defic iency anemia 89190088 D50.9 -- H/O MIRNA; not currently taking iron tablets-- reporting to fatigue-- will restart ferrous sulfate if indicated; also prescribe docusate.- - if no improvemen t consider causes of patient persistent MIRNA such as malabsorpt ion vs poor intake vs blood loss Tuberculos is screening 047389581 Z11.1 - no contacts or symptoms patient needs screening to start school. History an d physical examination, school 15651367 Z02.0 [id number] MD Lisa DEL CID 14 IM 4 [facility] [place] [address] 11/28/2022 09:06:58 12/06/2022 16:18:17 Active or passive immunization 120097474 Z23 due for vaccine Iron defic iency anemia 16870956 D50.9 -- H/O MIRNA; not currently taking iron tablets-- reporting to fatigue-- will restart ferrous sulfate if indicated; also prescribed docusate.- - if no improvemen t consider causes of patient persistent MIRNA such as malabsorpt ion vs poor intake vs blood loss Obesity 154601687 E66.9 BMI- 35.4 Constipation 10229283 K5 9.00 - constipati on related to oral iron replacemen t- will tx w stool softener and as needed miralax [id number] MD Lisa Arriaga 14 4 [facility] [place] [address] 10/30/2022 15:31:34 11/27/2022 12:51:13 [id number] MD Lisa Herrera 14 4 [facility] [place] [address] 12/28/2022 11:13:07 01/02/2023 11:38:22 Gynecologic examination 34540017 Z01.419 - normal appearing cervix and vagina w/o discharge Overweight 059413710 E66 .3 BMI- 36.1- discussed healthy eating habits and regular exercise routines. recommende d >/= 150 min a week of aerobic exercise. Iron defic iency anemia 27652139 D50.9 -- H/O MIRNA; started iron infusions- - fatigue improved-- MIRNA possibly from malabsorpt ion vs poor intake vs blood loss; patient declines contracept ion that may decrease blood loss related to menstrual cycle-- will recheck CBC after she completes her last infusion [id number] MD Lisa DEL CID 14 4 [facility] [place] [address] 01/22/2023 13:42:29 01/30/2023 09:58:14 Administration of influenza vaccine 07022947 Z23 due for flu vaccine [id number] MD Lisa Burns 14 4 [facility] [place] [address] 04/24/2023 09:51:58 05/14/2023 09:29:25 Obesity 971530285 E66.9 BMI- 36.1- discussed healthy eating habits and regular exercise routines. recommende d >/= 150 min a week of aerobic exercise. Pruritic rash 53320681 L 28.2 - likely fungal rash on patients chest. pruritic flat, dry, darkened pigment colored patches w/o assoc discharge or erythema.- likely pityriasis versicolor [id number] KRISTIAN White 14 OB 4 [facility] [address] [place] [address] 12/03/2023 13:52:41 12/04/2023 08:58:23 Routine gynecologic examination done [id number] 9101 Z01.419 -Educated on the importance of SBE and awareness. -Discussed the importance of cervical cancer screenings -Educated osteoporos is prevention including calcium rich foods, weight bearing exercise.- Discussed the importance of exercise.- Nutrition discussed and the importance of a diet rich in fruits, vegetable, whole grains, and lean proteins.- Counseled regarding prevention of STD's and screening options, condom use and prevention .-Advised avoidance of tobacco, alcohol, and drugs.-Dis cussed sun safety and the importance of sunscreen. History of abnormal cervical Papanicolaou smear 854739889 Z87.42 repap completed. follow up based on results. Body mass index 30+ - obesity 143613062 Z68.35 Pt educated on risks and importance of lifestyle modificati ons. Pt reports will continue to follow up with PCP. Family daryl nning surveillance 654712623 Z30.09 Discussed contracept ion methods. Patient not interested in any methods other than condoms at this time. Patient aware of her increased risk for unplanned . Patient advised to do 400 mcg folic acid supplement to help prevent against NTD if unplanned occurs [id number] KRISTIAN White 14 OB 4 [facility] [place] [address] 02/04/2024 10:04:38 02/06/2024 08:59:36 Cyst of right Bartholin's gland duct 2067202289 0872125 N75.0 Discussed management options. Pt opts for abx course and surveillan ce. pt educated on risks of abx use and discussed need to take with food and start probiotic. pt advised to continue vulvar care and sitz baths. Pt opts for time off work until 02/06/24. Pt educated on warning signs and given ER precaution s. RTC in 10-14 days and call office if symptoms worsening or not continuing to improve. pt would like referral to surgeon to discuss yoli ng Health Concerns Section Related Observation LastModified by Organization Detai ls LastModified Time None Recorded Concern Status LastModified by Organization Details LastModified Time None Recorded Advance Directives Directive None Recorded Payers Encounter Date Sequence Insurance Name Policy Number Policy Graham Covered Member ID Graham Member ID Guarantor Name 12/28/2022 1 [facility] (MEDICAID HMO) [id number] Ana Deangelo [id number] Ana Deangelo 01/22/2023 1 [facility] (MEDICAID HMO) [id number] Ana Deangelo [id number] Ana Bright 04/24/2023 1 [facility] (MEDICAID HMO) [id number] Ana Deangelo [id number] Ana Deangelo 12/03/2023 1 [facility] [place] ILONEX Ana Deangelo [id number] Ana Bright 02/04/2024 1 [facility] [place] Ana Deangelo [id number] Ana Bright Notes Date Note Type Note Provider Name and Address Organization Details Recorded Time 12/28/2022 text/html 22 y/o female w PMH of iron def anemia and IBS arrived for PAP smear. She arrived without any or concerns.complaintsA nemia- she has started iron infusions; so far had 3 sessions. Has 2 more sessions scheduled. She reports to improvement in her energy level. Iwona Vazquez MD Attn: [address] [facility], [place], [address], [facility] 01/01/2023 06:15:58 04/24/2023 text/html Patient is a 22 y/o F w/ PMH of IBS, MIRNA, arrived to clinic with complaints of pruritic rash. Started on her chest. No recent illness or fevers. Has similar rash that improved w clotrimazole. Onset- 2-3 weeksprogression- spreading across chestlocation- chestattempted treatments- cortizone cream-spread then used Vaseline and a&D ointment No assoc discharge, no change in soaps, or detergent. no others w similar rash. No wood exposure Rebekah Blanca MD Attn: [address]ing[address] [facility], [place], [address], [facility] 05/13/2023 09:52:28 12/03/2023 text/html Annual GYNReport ed bypatient.History:no gynecologic complaints Menstrual cycle:Normal menses Urinary symptoms:No hematuria; No incontinence Vulva:No genital lesion Vagina:Normal vaginal discharge Breast:No breast pain; No breast lump; No nipple discharge Current Contraception:Satisf ied with current contraception; Condoms; Requests testing for sexually transmitted infections Sexual complaints:No sexual complaints; No pain during intercourse; Normal libido Menopausal Symptoms:No menopausal symptoms; Normal vaginal lubrication Psychological symptoms:No depression; No anxiety; No PMDD Preventive measures:Encourage self breast examination; Encourage regular exercise; Encourage no tobacco use; Encourage regular mammograms starting age 40; History of abnormal pap smear/cervical dysplasia pt is here for annual. pt denies any complaints. KRISTIAN White Attn: [address] [place], [address], [facility] 12/03/2023 14:34:54 02/04/2024 text/html Pt is here for E R follow up. Pt went to ER on 02/01/24 related to right bartholin cyst. Pt had I and D. Pt reports still draining and improving. Pt denies being sexually active in the last 6 months. Gonorrhea, chlamydia, and trichomonas testing negative 12/03/23. pt denies any chance of std exposure. pt denies fever or chills. KRISTIAN White Attn: [address] [place], [address], [facility] 02/04/2024 10:43:13 OBGyn Episode No OBEpisode recorded.
[2024-05-21 18:50] VITALS: BP 148/72; PULSE 64; RESP 20; TEMP 36.8; O2SAT 97
--- NOTE | 2024-05-21 19:25 | ED.DENTAL ---
HPI - Dental/Oral General Chief complaint: Dental/Oral Stated complaint: Tooth issues/menstral issues Time Seen by Provider: 05/21/24 19:25 Source: patient, RN notes reviewed and old records reviewed Mode of arrival: ambulatory Limitations: no limitations History of Present Illness HPI Narrative: 23 year old female who presets to express care with complaints of left post upper molar extraction #14 on the of this mouth with continued posadas with swelling with some yellowish tissue at extraction area, denies any difficulty swallowing or with breathing no trismus noted.She reports that she did not receive any antibiotic from dentist after extraction. Patient also complains of having menses for the past 9 days and has been passing some clots. Patient reports no chance of has not been sexually active for a year, reports that menses are regular, does not take control.. Patient states that she has been taking Tylenol and Ibuprofen for her dental pain . MD Complaint: tooth pain (where #14 tooth was extracted on 05/14/2024) Location: Tooth # (Where #14 tooth extracted) Onset (ago): day(s) (7) Severity scale (1-10): 5 Treatment prior to arrival: other (Tylenol and Ibuprofen and oral mouth rinse) Related Data Allergies Allergy/AdvReac Type Severity Reaction Status Date / Time No Known Allergies Allergy Verified 05/21/24 19:12 Review of Systems Review of Systems: CONSTITUTIONAL: Denies fever, chills, or sweats. ENT: Denies rhinorrhea, congestion, sore throat, or otalgia. Reports dental pain to where #14 tooth extracted on 05/14/2024 with swelling CARDIOVASCULAR: Denies chest pain, palpitations, or edema. RESPIRATORY: Denies cough or dyspnea. SKIN: Denies rash or itching. MUSCULOSKELETAL: Denies myalgia. Patient also reports prolonged menses with clots NEUROLOGIC: Denies headache All systems reviewed & are unremarkable except as noted in HPI and below PMFSH Past Medical History Medical History IBS (irritable bowel syndrome) Hypothyroidism Anemia Surgical History Surgical History History of orthopedic surgery right ankle repair Hx of breast reduction, elective also right breast tumor removed benign Social History Social History Smoking status: Never smoker Alcohol intake: current Alcohol use details: rare social Substance use type: does not use Living arrangements: with family Gender identity (if verbalized by the patient): Female Comments At time of signature, agree with nursing past medical, surgical, social and family history. There is no relevant family history pertinent to the presenting complaint Exam Narrative: GENERAL: Well-appearing, well-nourished, and in no acute distress. HEAD: Normocephalic, atraumatic. EYES: PERRLA and EOMI. ENT: Nares clear, no rhinorrhea or epistaxis. Mucous membranes moist. #14 tooth extracted on 05/14/24,patient continues to have pain and swelling of site with yellowish tissue noted in area of gum where tooth removed, no trismus noted or any facial swelling, no Fidel angina noted, resorts no difficulty with breathing or swallowing. NECK: Supple. no lymphadenopathy CHEST: Clear to auscultation. No respiratory distress. no cough noted SAO2 97% on room air HEART: Regular rate and rhythm. No murmur heard. Normal peripheral pulses. SKIN: Warm, dry, no rash. reports excessive length of menses with some clotting, denies any acute pain or any chance of . NEURO: No focal deficits. Alert and oriented x3. Course Course Emergency Course: Patient is aware of diagnosis, understands and agrees to treatment plan. Anticipatory guidance given. Patient agrees to follow-up as directed and is aware of reasons to seek care at the emergency department. Portions of this record may have been created with voice recognition software Level of Care: Express Care Visit Vital Signs Vital signs: Vital Signs Temperature 36.8 C 05/21/24 18:50 Pulse Rate 64 05/21/24 18:50 Respiratory Rate 20 05/21/24 18:50 Blood Pressure 148/72 H 05/21/24 18:50 Pulse Oximetry 97 05/21/24 18:50 Oxygen Delivery Room Air 05/21/24 18:50 Temperature 36.8 C 05/21/24 18:50 Pulse Rate 64 05/21/24 18:50 Respiratory Rate 20 05/21/24 18:50 Blood Pressure 148/72 H 05/21/24 18:50 Pulse Oximetry 97 05/21/24 18:50 Oxygen Delivery Room Air 05/21/24 18:50 Reviewed MDM - Dental/Oral MDM Narrative Medical decision making narrative: Patients pain and complaint coupled with physical findings are consistent with dentalgia. There are no focal signs of space occupying lesions that are compromising to the airway; no dysphagia, odynophagia, dysphonia, or dyspnea. No uvular deviation or soft palate edema. Patient is non-toxic appearing. The floor of the mouth is soft with no signs of Fidel's Angina; no induration below mandible, no neck pain.? Patient is without trismus or drooling and able to swallow secretions.? Patient is felt appropriate for discharge home with dental follow up. Differential Diagnosis Differential diagnosis: Likely other (dental pain, gum swelling, gum abscess, menorrhagia) Medical Records Attestation: I reviewed the patient's medical records. Critical Care Time Critical Care Time Critical Care Time: No Discharge Plan Discharge Clinical Impression: Pain, dental, Gum abscess Menorrhagia Qualifiers: Menorrhagia type: with regular cycle Qualified Code(s): N92.0 - Excessive and frequent menstruation with regular cycle Patient Disposition: Home, Self-Care Condition: Stable Instructions: Antibiotic Form, Dental Abscess (ED), Toothache (ED) Additional Instructions: Avoid temperature extremes May apply heat or ice to the face Gentle brushing and flossing Antibiotic as directed Tylenol for lesser pain Follow-up with the dentist as soon as possible call office in the morning 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 Follow-up with PCP in 7-10 days or sooner if needed Follow up with PCP soon in regards to your blood pressure which is elevated above threshold for referral. Blood pressure above 120/80 may indicate pre-hypertension. 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
== END 2024-05-21 19:45 | disposition home or self-care (01) ==
PROVIDERS: Emergency Provider Registered Nurse
DX: G89.18 Other acute postprocedural pain (principal); T81.40XA Infection following a procedure, unspecified, initial encounter; K04.7 Periapical abscess without sinus; N92.0 Excessive and frequent menstruation with regular cycle; E03.9 Hypothyroidism, unspecified
CPT/HCPCS: 99213; G0463

== ENCOUNTER 2024-08-09 15:45 | Emergency (ER) | payer OTHER, SELFPAY ==
--- OUTSIDE RECORDS SUMMARY | 2024-08-09 15:48 | XMS_ITS ---
Author Organization [facility] Address [address] [place] [address] Phone Care Team Providers Care Real Estate Financial Analyst Name Role Phone Provider, None Primary Care Provider Unavailabl e [facility] Status:Enrolled (Active) Start date:03/25/2024 Enrollment date:03/25/2024 Related social drivers of health:Social Connections, Alcohol Use, Financial Resource Strain, Depression, Stress, Physical Activity, Food Insecurity, Transportation Needs, Housing Stability, Utilities Continued Care and Services Coordination
--- OUTSIDE RECORDS SUMMARY | 2024-08-09 15:48 | XMS_ITS | Clinical Summary ---
Author Organization [facility] Address [address] [place] [address] Phone Care Team Providers Care Transliterator Name Role Phone Provider, None Primary Care Provider Unavailabl e Allergies No known active allergies Medications Ferrous Sulfate (IRON PO) Take by mouth. Activ e nitrofurantoin, monohydrate-mac rocrystal, (Macrobid) 100 MG CapsuleIndicati ons:Urinary Tract Infection Take 1 Capsule by mouth 2 times daily for 7 days. Indications: Urinary Tract Infection 14 Capsule 5 08/13/19 25 Active Active Problems Problem Noted Date Diagnosed Date B12 deficiency 04/17/2023 Anemia 12/14/2022 Menorrhagia with regular cycle 12/14/2022 Encounters Date Type Department Care Team Description 08/05/2024 7:41 PM CDT - 08/05/2024 9:08 PM CDT Emergency [facility] Emergency [address] [place] [address] Oneil Juan PAC Menorrhagia with irregular cycle Discharge Disposition: Discharged to home or Selfcare 08/05/2024 Travel from Last 3 Months Social History Tobacco Use Types Packs/Day Years Used Date Smoking Tobacco: Never Smokeless Tobacco: Never Tobacco Cessation:Counseling Given: Not Answered Alcohol Use Standard Drinks/Week Comments Not Currently 0 (1 standard drink = 0.6 oz pur e alcohol) Comments No Sex and Gender Information Value Date Recorded Sex Assigned at Female 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 Sex Female 12:23 PM CDT Gender Identity Female 02/01/2024 2:35 AM MATERIALS INSPECTOR Sexual Orientation Not on file Last Filed Vital Signs Vital Sign Reading Time Taken Comments Blood Pressure 148/95 08/05/2024 9:05 PM CDT Pulse 85 08/05/2024 9:05 PM CDT Temperature 36.8 C (98.3 F) 08/05/2024 7:45 PM CDT Respiratory Rate 16 08/05/2024 7:45 PM CDT Oxygen Saturation 98% 08/05/2024 9:05 PM CDT Inhaled Oxygen Concentration - - Weight 98.8 kg (217 lb 13 oz) 08/05/2024 7:45 PM CDT Height 160 cm (5' 3) 08/05/2024 7:45 PM CDT Body Mass Index 38.58 08/05/2024 7:45 PM CDT Plan of Treatment Health Maintenance Due Date Last Done Comments Hepatitis C Virus (HCV) Screening 1998 Pap Smear 08/10/2019 SARS-COV-2 Immunization ( season) 2023 Influenza Immunization (Season Ended) 2024 01/22/2023, 04/28/2013 Respiratory Syncytial Virus (RSV) Immunization (Adult) (1 - 1-dose 75+ series) 2073 Hepatitis B Immunization Completed , 01/23/1999, 1998 Human Papillomavirus (HPV) Immunization Completed [...] on patient's age to complete this topic Procedures Procedure Name Priority Date/Time Associated Diagnosis Comments POCT URINE HCG () STAT 08/05/2024 8:20 PM CDT CBC WITH AUTO DIFFERENTIAL STAT 08/05/2024 8:10 PM CDT APTT (PTT) STAT 08/05/2024 8:10 PM CDT PROTIME (PT) (PROTHROMBIN TIME) STAT 08/05/2024 8:10 PM CDT URINALYSIS REFLEX IF INDICATED BY ABNORMAL RESULTS STAT 08/05/2024 8:10 PM CDT CMP (COMPREHENSIVE METABOLIC PANEL) STAT 08/05/2024 8:10 PM CDT COMPLETE BLOOD COUNT (CBC) WITH DIFF STAT 08/05/2024 8:10 PM CDT CULTURE, URINE STAT 08/05/2024 8:10 PM CDT from Last 3 Months Results * POCT Urine HCG () (08/05/2024 8:20 PM CDT) [facility] POC URINE Negative POC URINE CONTROL [employer] Sales Representative Pass Urine 08/05/2024 8:20 PM CDT Oneil Juan [facility] POINT OF CARE TESTIN G (MANUAL) Final Result * (ABNORMAL) Urinalysis w/ Reflex (08/05/2024 8:10 PM CDT) [facility] SPECIFIC GRAVITY 1.025 1.003 - 1.030 08/05/2024 8:48 PM CDT [facility] URINE PH 5.0 5.0 - 9.0 08/05/2024 8:48 PM CDT [facility] WBC ESTERASE 25 /ul(A) Negative 08/05/2024 8:48 PM CDT [facility] NITRITE Negative Negative 08/05/2024 8:48 PM CDT [facility] PROTEIN, RANDOM URINE 30 mg/dL(A) Negative 08/05/2024 8:48 PM CDT [facility] URINE GLUCOSE, QUAL Negative Negative 08/05/2024 8:48 PM CDT [facility] URINE KETONES 15 mg/dL(A) Negative 08/05/2024 8:48 PM CDT [facility] UROBILINOGEN Normal Normal mg/dL 08/05/2024 8:48 PM CDT [facility] URINE BLOOD 250 /uL(A) Negative kimberly/ul 08/05/2024 8:48 PM CDT [facility] URINALYSIS COLOR Quyen 08/06/19 8:48 PM CDT [facility] URINALYSIS CLARITY Slightly Cloudy 08/05/2024 8:48 PM CDT [facility] WBC (Urine) 6-10(A) Negative, 0-5 /hpf 08/05/2024 8:48 PM CDT [facility] URINE RBC'S 51-150(A) Negative, 0-2 /hpf 08/05/2024 8:48 PM CDT [facility] EPITHELIAL CELLS Moderate amount /lpf 08/05/2024 8:48 PM CDT [facility] BACTERIA, URINE Few(A) Negative /hpf 08/05/2024 8:48 PM CDT [facility] Urine URINE SPECIMEN / Unknown Non-Phlebotomy Collection / Unknown 08/05/2024 8:10 PM CDT 08/05/2024 8:23 PM CDT us Oneil Juan PAC URINE ORDERABLES Fin al Result [facility] [address] [place] [address] * (ABNORMAL) CBC with Auto Differential (08/05/2024 8:10 PM CDT) WBC 7.62 4.00 - 12.00 10(3)/mcL 08/05/2024 8:27 PM CDT [facility] RBC 4.24 3.80 - 5.30 10(6)/mcL 08/05/2024 8:27 PM CDT [facility] HEMOGLOBIN (HGB) 10.9(L) 12.0 - 15.8 g/dL 08/05/2024 8:27 PM CDT [facility] HEMATOCRIT (HCT) 34.1(L) 36.0 - 47.0 % 08/05/2024 8:27 PM CDT [facility] MCV 80.4(L) 82.0 - 96.0 fL 08/05/2024 8:27 PM CDT [facility] MCH 25.7(L) 26.0 - 34.0 pg 08/05/2024 8:27 PM CDT [facility] MCHC 32.0 31.0 - 36.0 g/dL 08/05/2024 8:27 PM CDT [facility] PLATELET COUNT 440 140 - 440 10(3)/mcL 08/05/2024 8:27 PM CDT [facility] RDW 12.7 11.8 - 15.5 % 08/05/2024 8:27 PM CDT [facility] MPV 8.9(L) 9.7 - 12.4 fL 08/05/2024 8:27 PM CDT [facility] NEUTROPHILS 59.1 47.0 - 73.0 % 08/05/2024 8:27 PM CDT [facility] LYMPHOCYTES 32.9 18.0 - 42.0 % 08/05/2024 8:27 PM CDT [facility] MONOCYTES 6.3 4.0 - 12.0 % 08/05/2024 8:27 PM CDT [facility] EOSINOPHILS 1.3 0.0 - 5.0 % 08/05/2024 8:27 PM CDT [facility] BASOPHILS 0.4 0.0 - 1.0 % 08/05/2024 8:27 PM CDT [facility] ABSOLUTE NEUTROPHILS 4.50 1.60 - 7.70 10(3)/mcL 08/05/2024 8:27 PM CDT [facility] ABSOLUTE LYMPHOCYTES 2.51 1.30 - 3.20 10(3)/[facility] 08/05/2024 8:27 PM CDT [facility] ABSOLUTE MONOCYTES 0.48 0.20 - 1.00 10(3)/[facility] 08/05/2024 8:27 PM CDT [facility] ABSOLUTE EOSINOPHIL 0.10 0.00 - 0.40 10(3)/[facility] 08/05/2024 8:27 PM CDT [facility] ABSOLUTE BASOPHILS 0.03 0.00 - 0.10 10(3)/[facility] 08/05/2024 8:27 PM CDT [facility] NRBC PER 100 WBC 0 08/06/19 8:27 PM CDT [facility] Blood Venipuncture / Unknown 08/05/2024 8:10 PM CDT 08/05/2024 8:23 PM CDT Oneil Juan PAC HEMATOLOGY ORDERABLE S Final Result [facility] [address] [place] [address] * PTT (08/05/2024 8:10 PM CDT) PTT 30 24 - 36 sec 08/05/2024 8:53 PM CDT [facility] Blood Venipuncture / Unknown 08/05/2024 8:10 PM CDT 08/05/2024 8:23 PM CDT Narrative [facility] - 08/05/2024 8:53 PM CDT Therapeutic range for unfractionated heparin at 0.3-0.7 U/mL is an aPTT value in the range of 71-100 seconds. Critical value for the PTT test is >= 122 seconds. Oneil Juan PAC HEMATOLOGY ORDERABLE S Final Result [facility] [address] [place] [address] * PT / INR (08/05/2024 8:10 PM CDT) Pathologist [facility] PROTIME-PATIENT 13.7 11.6 - 14.8 sec 08/05/2024 8:53 PM CDT [facility] INR 1.0 0.9 - 1.2 08/05/2024 8:53 PM CDT [facility] Comment: Therapeutic Ranges INR = 2.0-3.0: Venous thromb, atrial fib, pul embolism, tissue heart valve, ami. INR = 2.5-3.5: Mechanical heart valve Critical value for INR is >/= 4.5 Blood Venipuncture / Unknown 08/05/2024 8:10 PM CDT 08/05/2024 8:23 PM CDT us Oneil Juan PAC HEMATOLOGY ORDERABLE S Final Result Performing Organization Address City/[facility]/ZIP Co de Phone Number [facility] [address] [place] [address] * Culture, Urine (08/05/2024 8:10 PM CDT) [facility] CULTURE RESULTS Mixed Growth of One or More Distal Urethral Contaminants 08/07/2024 10:27 AM CDT [facility] Urine URINE SPECIMEN / Unknown Non-Phlebotomy Collection / Unknown 08/05/2024 8:10 PM CDT 08/05/2024 8:23 PM CDT us Oneil Juan PAC MICROBIOLOGY - GENER AL ORDERABLES Final Result [facility] [address] [place] [address], [place] * (ABNORMAL) CMP (08/05/2024 8:10 PM CDT) Pathologist [facility] SODIUM 140 136 - 145 mmol/L 08/05/2024 8:45 PM CDT [facility] POTASSIUM 3.9 3.5 - 5.1 mmol/L 08/05/2024 8:45 PM CDT [facility] CHLORIDE 109(H) 98 - 107 mmol/L 08/05/2024 8:45 PM CDT [facility] CO2, VENOUS 23 22 - 30 mmol/L 08/05/2024 8:45 PM CDT [facility] ANION GAP 11.9 <18.0 mmol/L 08/05/2024 8:45 PM CDT [facility] GLUCOSE 83 70 - 99 mg/dL 08/05/2024 8:45 PM CDT [facility] BUN 7 5 - 18 mg/dL 08/05/2024 8:45 PM CDT [facility] CREATININE, BLOOD 0.68 0.60 - 1.00 mg/dL 08/05/2024 8:45 PM CDT [facility] BUN/CREATININE RATIO 10(L) 12 - 20 ratio 08/05/2024 8:45 PM CDT [facility] TOTAL PROTEIN 8.0 6.0 - 8.0 g/dL 08/05/2024 8:45 PM CDT [facility] ALBUMIN 4.2 3.5 - 5.0 g/dL 08/05/2024 8:45 PM CDT [facility] A/G RATIO 1.1 1.0 - 2.2 08/05/2024 8:45 PM CDT [facility] CALCIUM 8.9 8.7 - 10.5 mg/dL 08/05/2024 8:45 PM CDT [facility] T BILI 0.2 0.2 - 1.2 mg/dL 08/05/2024 8:45 PM CDT [facility] SGOT (AST) 16 <43 U/L 08/05/2024 8:45 PM CDT [facility] SGPT (ALT) 10 <56 U/L 08/05/2024 8:45 PM CDT [facility] ALKALINE PHOSPHATASE 68 40 - 150 U/L 08/05/2024 8:45 PM CDT [facility] GFR, ESTIMATED >60 >=60 08/05/2024 8:45 PM CDT [facility] Comment: Creatinine Clearance is the preferred criteria for selecting drug dose adjustments in renally impaired patients. The GFR is provided as additional pertinent clinical information. GFR is reported in mL/min/1.73 sq m. Calculation based on the Chronic Kidney Disease Epidemiology Collaboration (CKD- EPI) equation refit without adjustment for race. GFR, EST. >60 >=60 025 8:45 PM CDT [facility] GFR, EST. NONAFRICAN >60 >=60 08/05/2024 8:45 PM CDT [facility] Blood Venipuncture / Unknown 08/05/2024 8:10 PM CDT 08/05/2024 8:23 PM CDT Oneil Juan PAC CHEMISTRY ORDERABLES Final Result [facility] [address] [place] [address] from Last 3 Months Care Teams Transliterator Relationship Specialty Start Date End Date Provider, None [place] PCP - General 01/12/24
[2024-08-09 15:52] VITALS: BP 122/92; PULSE 83; RESP 20; TEMP 36.9; O2SAT 100
--- NOTE | 2024-08-09 15:58 | ED_ITS ---
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 Says she does not remember removing the tampon last night, but could not feel a string today. Denies abdominal pain, n/v/d/f/c. Related Data Home Medications ?Medication ?Instructions ?Recorded ?Confirmed ?Last Taken ?Type nitrofurantoin 08/09/24 Unknown History monohydrate/macrocrystals 100 mg capsule Allergies Allergy/AdvReac Type Severity Reaction Status Date / Time No Known Allergies Allergy Verified 05/21/24 19:12 Review of Systems Review of Systems: CONSTITUTIONAL: Denies body aches, fever, chills, or sweats. CARDIOVASCULAR: Denies chest pain, palpitations, or edema. RESPIRATORY: Denies cough or dyspnea. GASTROINTESTINAL: Denies abdominal pain, nausea, vomiting, or diarrhea. GENITOURINARY: denies dysuria, frequency, urgency, hematuria, flank pain, discharge SKIN: Denies rash MUSCULOSKELETAL: Denies back pain or myalgia. [facility] Past Medical History Medical History IBS (irritable bowel syndrome) Hypothyroidism Anemia Surgical History Surgical History History of orthopedic surgery right ankle repair Hx of breast reduction, elective also right breast tumor removed benign Social History Social History Smoking status: Never smoker Alcohol intake: current Alcohol use details: rare social Substance use type: does not use Living arrangements: with family Gender identity (if verbalized by the patient): Female Comments At time of signature, I have reviewed and agree with nursing past medical, surgical, social and family history unless otherwise noted. Please see nursing chart for further information. There is no relevant family history pertinent to the presenting complaint Exam Narrative: GENERAL: Well-appearing and in no acute distress. ENT: Mucous membranes pink and moist. NECK: Normal AROM. Supple. CHEST: No respiratory distress. Clear to auscultation. HEART: Regular rate and rhythm. ABDOMEN: Soft, nontender, nondistended, normal active bowel sounds. No CVA tenderness :normal vaginal introitus, pink with bleeding c/w menses, No foreign body, No swelling. Nontender. Cervix: normal appearance of the cervix, closed Other: Chaperoned by Janel GARCIA SKIN: Warm, dry, no rash. NEURO: No focal deficits. Alert and oriented x3. Gait steady. PSYCH: Normal affect. Course Course Emergency Course: Patient is aware of diagnosis, understands and agrees to treatment plan. Anticipatory guidance given. Patient agrees to follow-up as directed and is aware of reasons to seek care at the emergency department. Portions of this record may have been created with voice recognition software Level of Care: Express Care Visit Vital Signs Vital signs: Vital Signs Temperature 98.4 F 08/09/24 15:52 Pulse Rate 83 08/09/24 15:52 Respiratory Rate 20 08/09/24 15:52 Blood Pressure 122/92 H 08/09/24 15:52 Pulse Oximetry 100 08/09/24 15:52 Oxygen Delivery Room Air 08/09/24 15:52 Temperature 98.4 F 08/09/24 15:52 Pulse Rate 83 08/09/24 15:52 Respiratory Rate 20 08/09/24 15:52 Blood Pressure 122/92 H 08/09/24 15:52 Pulse Oximetry 100 08/09/24 15:52 Oxygen Delivery Room Air 08/09/24 15:52 Reviewed MDM - Female Genitourinary MDM Narrative Medical decision making narrative: Discussed physical exam findings; no retained tampon noted on exam. Advised supportive measures and signs/symptoms to go to the ER. Pt is appropriate for outpt treatment and f/u. Differential Diagnosis Differential diagnosis: Likely urinary tract infection, bacterial vaginosis, vaginitis, cystitis and other (FB) Discharge Plan Discharge Clinical Impression: Worried well Patient Disposition: Home Condition: Stable Instructions: Antibiotic Form, Vaginal Foreign Body (ED) Additional Instructions: You can resume using Tampons Follow up with your primary care provider as needed in 1 week Go to the ER for worsening symptoms or concerns Patient Language: Solomon Islander Prescriptions: No Action nitrofurantoin monohyd/m-cryst 100 mg capsule Follow-up/Referrals: PHYSICIAN,TOOL MACHINE 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
--- NOTE | 2024-08-09 16:15 | PC.NURSE ---
Vag exam done per STRADDLE BUGGY OPERATOR. Tolerated well
== END 2024-08-09 16:11 | disposition home or self-care (01) ==
PROVIDERS: Emergency Provider Nurse Practitioner Family
DX: Z71.1 Person with feared health complaint in whom no diagnosis is made (principal); E03.9 Hypothyroidism, unspecified
CPT/HCPCS: 99213; G0463

== ENCOUNTER 2024-09-28 14:18 | Emergency (ER) | payer OTHER, SELFPAY ==
--- NOTE | ~2024-09-28 | XR_ITS ---
XR ankle RT min 3V 09/28/2024 14:56 Indication: Ankle swelling Procedure: 4 views right ankle Comparison: No prior studies for comparison. Findings: There are surgical changes consistent with internal fixation of bimalleolar fractures. No a cute fractures identified. Mild diffuse soft tissue swelling. Ankle mortise intact. No abnormality of the talar dome. Impression: 1: No acute fracture. 2: Mild nonspecific soft tissue swelling. Reviewed, dictated and finalized at location A. Impression: 1: No acute fracture. 2: Mild nonspecific soft tissue swelling.
[2024-09-28 14:22] VITALS: BP 152/91; PULSE 72; RESP 20; TEMP 36.7; O2SAT 100
--- OUTSIDE RECORDS SUMMARY | 2024-09-28 14:30 | XMS_ITS | Clinical Summary ---
Author Organization [facility] [place] [facility] Administrative Offices Address [address] [place] [address] Care Team Providers Care Banquet Coordinator Name Role Phone Unavailable Primary Care Provider Unavailabl e Encounters Date Type Department Care Team Description 09/23/2024 1:07 PM CDT - 09/23/2024 11:59 PM CDT Hospital Encounter [facility] Ultrasound [address] [id number] Rose Vanegas NP Discharge Disposition: Home or Self Care from Last 3 Months Social History Tobacco Use Types Packs/Day Years Used Date Smoking Tobacco: Never Assessed Comments Unknown Sex and Gender Information Value Date Recorded Sex Assigned at Not on file Legal Sex Female 5:20 AM CDT Gender Identity Not on file Sexual Orientation Not on file Plan of Treatment Health Maintenance Due Date Last Done Comments CERVICAL CANCER SCREENING 08/10/2019 HPV/Cotest (21-29) 08/10/2019 PAP SMEAR 08/10/2019 INFLUENZA VACCINE (#1) 2024 01/22/2023, 2013 DTAP/TDAP/TD VACCINES (7 - T d or Tdap) 11/28/2032 11/28/2022, 10/28/2012, 09/23/2003, Additional history exists HEPATITIS B VACCINES Completed 06/13/1999, 01/23/1999, 1998 HPV VACCINES Completed 04/28/2013, 10/28/2012 Procedures Procedure Name Priority Date/Time Associated Diagnosis Comments US PELVIS + TRANSVAG NON OB Routine 09/23/2024 2:25 PM CDT Excessive and frequent menstruation with irregular cycle from Last 3 Months Results * US PELVIS + TRANSVAG NON OB (09/23/2024 2:25 PM CDT) Anatomical Region Laterality Modality Pelvis Ultrasound 09/23/2024 2:27 PM CDT Impressions 09/23/2024 6:00 PM CDT IMPRESSION: 1. Endometrium is upper limits of normal at 15 mm. There is a questionable hypoechoic lesion in the endometrial cavity at the fundus which could suggest a leiomyoma however this is most likely artifactual. 2. Left ovarian cyst with small adjacent ascites. DICTATION LOCATION: Location 4 Narrative 09/23/2024 6:00 PM CDT US PELVIS + TRANSVAG NON OB DATE: 09/23/2024 2:25 PM HISTORY: Excessive menstruation. COMPARISON: None. FINDINGS: TRANSABDOMINAL IMAGES: Uterus: Retroflexed and measures 10.6 cm x 4.8 cm x 5.1 cm. The endometrium measures approximately 15 mm in thickness. Right Ovary/Adnexa: 2.7 cm x 1.5 cm x 2.2 cm. Left Ovary/Adnexa: 4.0 cm x 4.7 cm x 3.3 cm and is nearly completely replaced by a hypoechoic lesion/cyst. TRANSVAGINAL IMAGES: Uterus: Retroverted and measures 9.7 cm x 4.9 cm x 5.8 cm. Endometrium measures 15 mm in thickness which is upper limits of normal in thickness. There is a questionable 15 mm x 8 mm hypoechoic solid lesion in the endometrial cavity at the fundus which could relate to a leiomyoma however this is felt to most likely be artifactual. Right Ovary/Adnexa: 2.5 cm x 2.9 cm x 1.5 cm. Left Ovary/Adnexa: 3.8 cm x 2.5 cm x 3.7 cm and contains a 3.2 cm cyst. Ascites: Small physiologic ascites adjacent to the left ovary. Procedure Note César Del Toro MD - 09/23/2024 US PELVIS + TRANSVAG NON OB DATE: 09/23/2024 2:25 PM HISTORY: Excessive menstruation. COMPARISON: None. FINDINGS: TRANSABDOMINAL IMAGES: Uterus: Retroflexed and measures 10.6 cm x 4.8 cm x 5.1 cm. The endometrium measures approximately 15 mm in thickness. Right Ovary/Adnexa: 2.7 cm x 1.5 cm x 2.2 cm. Left Ovary/Adnexa: 4.0 cm x 4.7 cm x 3.3 cm and is nearly completely replaced by a hypoechoic lesion/cyst. TRANSVAGINAL IMAGES: Uterus: Retroverted and measures 9.7 cm x 4.9 cm x 5.8 cm. Endometrium measures 15 mm in thickness which is upper limits of normal in thickness. There is a questionable 15 mm x 8 mm hypoechoic solid lesion in the endometrial cavity at the fundus which could relate to a leiomyoma however this is felt to most likely be artifactual. Right Ovary/Adnexa: 2.5 cm x 2.9 cm x 1.5 cm. Left Ovary/Adnexa: 3.8 cm x 2.5 cm x 3.7 cm and contains a 3.2 cm cyst. Ascites: Small physiologic ascites adjacent to the left ovary. IMPRESSION: 1. Endometrium is upper limits of normal at 15 mm. There is a questionable hypoechoic lesion in the endometrial cavity at the fundus which could suggest a leiomyoma however this is most likely artifactual. 2. Left ovarian cyst with small adjacent ascites. DICTATION LOCATION: Location 4 Rose Vanegas NP ORDERABLES Final Result from Last 3 Months [facility]
--- OUTSIDE RECORDS SUMMARY | 2024-09-28 14:31 | XMS_ITS | Clinical Summary ---
Author Organization [facility] Address [address] [place] [address] Phone Care Team Providers Care Exterminator Helper Name Role Phone Provider, None Primary Care Provider Unavailabl e Allergies No known active allergies Medications Ferrous Sulfate (IRON PO) Take by mouth. Active Active Problems Problem Noted Date Diagnosed Date B12 deficiency 04/17/2023 Anemia 12/14/2022 Menorrhagia with regular cycle 12/14/2022 Encounters Date Type Department Care Team Description 08/05/2024 7:41 PM CDT - 08/05/2024 9:08 PM CDT Emergency [facility] [address] [place] [address] Oneil Juan PAC Menorrhagia with [...] Sex Assigned at Female 02/01/2024 2:35 AM PHYSICIAN ASSISTANT PSYCHIATRY Legal Sex Female 12:23 PM CDT Gender Identity Female 02/01/2024 2:35 AM PHYSICIAN ASSISTANT PSYCHIATRY Sexual Orientation Not on file Last Filed [...] SARS-COV-2 Immunization ( season) 2023 Influenza Immunization (#1) 2024 01/22/2023, 0 04/28/2013 Respiratory Syncytial Virus (RSV) Immunization (Adult) [...] Urine HCG () (08/05/2024 8:20 PM CDT) Pathologist [facility] POC URINE Negative POC URINE CONTROL Telecommunications Operator Pass Urine 08/05/2024 8:20 PM CDT Oneil Juan PAC POINT OF CARE TESTIN G (MANUAL) Final Result * (ABNORMAL) Urinalysis w/ Reflex (08/05/2024 8:10 PM CDT) [facility] SPECIFIC GRAVITY 1.025 1.003 - 1.030 08/05/2024 8:48 PM CDT [facility] URINE PH 5.0 5.0 - 9.0 08/05/2024 8:48 PM CDT [facility] WBC ESTERASE 25 /ul(A) Negative 08/05/2024 8:48 PM CDT [facility] NITRITE Negative Negative 08/05/2024 8:48 PM CDT [facility] PROTEIN, RANDOM URINE 30 mg/dL(A) Negative 08/05/2024 8:48 PM CDT [facility] URINE GLUCOSE, QUAL Negative Negative 08/05/2024 8:48 PM CDT [facility] URINE KETONES 15 mg/dL(A) Negative 08/05/2024 8:48 PM CDT [facility] UROBILINOGEN Normal Normal mg/dL 08/05/2024 8:48 PM CDT [facility] URINE BLOOD 250 /uL(A) Negative kimberly/ul 08/05/2024 8:48 PM CDT [facility] URINALYSIS COLOR Quyen 08/06/19 25 8:48 PM CDT [facility] URINALYSIS CLARITY Slightly Cloudy 08/05/2024 8:48 PM CDT [facility] WBC (Urine) 6-10(A) Negative, 0-5 /hpf 08/05/2024 8:48 PM CDT [facility] URINE RBC'S 51-150(A) Negative, 0-2 /hpf 08/05/2024 8:48 PM CDT [facility] EPITHELIAL CELLS Moderate amount /lpf 08/05/2024 8:48 PM CDT [facility] BACTERIA, URINE Few(A) Negative /hpf 08/05/2024 8:48 PM CDT [facility] Urine URINE SPECIMEN / Unknown Non-Phlebotomy Collection / Unknown 08/05/2024 8:10 PM CDT 08/05/2024 8:23 PM CDT us Oneil Juan PAC URINE ORDERABLES Fin al Result [facility] [address] [place] [address] * (ABNORMAL) CBC with Auto Differential (08/05/2024 8:10 PM CDT) WBC 7.62 4.00 - 12.00 10(3)/mcL 08/05/2024 8:27 PM CDT [facility] RBC 4.24 3.80 - 5.30 10(6)/mcL 08/05/2024 8:27 PM CDT [facility] HEMOGLOBIN (HGB) 10.9(L) 12.0 - 15.8 g/dL 08/05/2024 8:27 PM CDT [facility] HEMATOCRIT (HCT) 34.1(L) 36.0 - 47.0 % 08/05/2024 8:27 PM CDT [facility] MCV 80.4(L) 82.0 - 96.0 fL 08/05/2024 8:27 PM CDT [facility] MCH 25.7(L) 26.0 - 34.0 pg 08/05/2024 8:27 PM CDT [facility] MCHC 32.0 31.0 - 36.0 g/dL 08/05/2024 8:27 PM CDT [facility] PLATELET COUNT 440 140 - 440 10(3)/mcL 08/05/2024 8:27 PM CDT [facility] RDW 12.7 11.8 - 15.5 % 08/05/2024 8:27 PM CDT [facility] MPV 8.9(L) 9.7 - 12.4 fL 08/05/2024 8:27 PM CDT [facility] NEUTROPHILS 59.1 47.0 - 73.0 % 08/05/2024 8:27 PM CDT [facility] LYMPHOCYTES 32.9 18.0 - 42.0 % 08/05/2024 8:27 PM CDT [facility] MONOCYTES 6.3 4.0 - 12.0 % 08/05/2024 8:27 PM CDT [facility] EOSINOPHILS 1.3 0.0 - 5.0 % 08/05/2024 8:27 PM CDT [facility] BASOPHILS 0.4 0.0 - 1.0 % 08/05/2024 8:27 PM CDT [facility] ABSOLUTE NEUTROPHILS 4.50 1.60 - 7.70 10(3)/mcL 08/05/2024 8:27 PM CDT [facility] ABSOLUTE LYMPHOCYTES 2.51 1.30 - 3.20 10(3)/mcL 08/05/2024 8:27 PM CDT [facility] ABSOLUTE MONOCYTES 0.48 0.20 - 1.00 10(3)/mcL 08/05/2024 8:27 PM CDT [facility] ABSOLUTE EOSINOPHIL 0.10 0.00 - 0.40 10(3)/mcL 08/05/2024 8:27 PM CDT [facility] ABSOLUTE BASOPHILS 0.03 0.00 - 0.10 10(3)/mcL 08/05/2024 8:27 PM CDT [facility] NRBC PER 100 WBC 0 08/06/19 8:27 PM CDT [facility] Blood Venipuncture / Unknown 08/05/2024 8:10 PM CDT 08/05/2024 8:23 PM CDT Oneil Juan PAC HEMATOLOGY ORDERABLE S Final Result Performing Organization Address City/[facility]/ZIP Co de Phone Number [facility] [address] [place] [address] * PTT (08/05/2024 8:10 PM CDT) Pathologist [facility] PTT 30 24 - 36 sec 08/05/2024 8:53 PM CDT [facility] Blood Venipuncture / Unknown 08/05/2024 8:10 PM CDT 08/05/2024 8:23 PM CDT Narrative [facility] - 08/05/2024 8:53 PM CDT Therapeutic range for unfractionated heparin at 0.3-0.7 U/mL is an aPTT value in the range of 71-100 seconds. Critical value for the PTT test is >= 122 seconds. Oneil Juan PAC HEMATOLOGY ORDERABLE S Final Result [facility] [address] [place] [address] * PT / INR (08/05/2024 8:10 PM CDT) PROTIME-PATIENT 13.7 11.6 - 14.8 sec 08/05/2024 8:53 PM CDT [facility] INR 1.0 0.9 - 1.2 08/05/2024 8:53 PM CDT [facility] Comment: Therapeutic Ranges INR = 2.0-3.0: Venous thromb, atrial fib, pul embolism, tissue heart valve, ami. INR = 2.5-3.5: Mechanical heart valve Critical value for INR is >/= 4.5 Blood Venipuncture / Unknown 08/05/2024 8:10 PM CDT 08/05/2024 8:23 PM CDT Oneil Juan PAC HEMATOLOGY ORDERABLE S Final Result Performing Organization Address City/[facility]/ZIP Co de Phone Number [facility] [address] [place] [address] * Culture, Urine (08/05/2024 8:10 PM CDT) Pathologist [facility] CULTURE RESULTS Mixed Growth of One or More Distal Urethral Contaminants 08/07/2024 10:27 AM CDT [facility] Urine URINE SPECIMEN / Unknown Non-Phlebotomy Collection / Unknown 08/05/2024 8:10 PM CDT 08/05/2024 8:23 PM CDT Oneil Juan PAC MICROBIOLOGY - GENER AL ORDERABLES Final Result [facility] [address] [place] [address], [place] * (ABNORMAL) CMP (08/05/2024 8:10 PM CDT) SODIUM 140 136 - 145 mmol/L 08/05/2024 8:45 PM CDT [facility] POTASSIUM 3.9 3.5 - 5.1 mmol/L 08/05/2024 8:45 PM CDT [facility] CHLORIDE 109(H) 98 - 107 mmol/L 08/05/2024 8:45 PM CDT [facility] CO2, VENOUS 23 22 - 30 mmol/L 08/05/2024 8:45 PM CDT [facility] ANION GAP 11.9 <18.0 mmol/L 08/05/2024 8:45 PM CDT [facility] GLUCOSE 83 70 - 99 mg/dL 08/05/2024 8:45 PM CDT [facility] BUN 7 5 - 18 mg/dL 08/05/2024 8:45 PM CDT [facility] CREATININE, BLOOD 0.68 0.60 - 1.00 mg/dL 08/05/2024 8:45 PM CDT [facility] BUN/CREATININE RATIO 10(L) 12 - 20 ratio 08/05/2024 8:45 PM CDT [facility] TOTAL PROTEIN 8.0 6.0 - 8.0 g/dL 08/05/2024 8:45 PM CDT [facility] ALBUMIN 4.2 3.5 - 5.0 g/dL 08/05/2024 8:45 PM CDT [facility] A/G RATIO 1.1 1.0 - 2.2 08/05/2024 8:45 PM CDT [facility] CALCIUM 8.9 8.7 - 10.5 mg/dL 08/05/2024 8:45 PM CDT [facility] T BILI 0.2 0.2 - 1.2 mg/dL 08/05/2024 8:45 PM CDT [facility] SGOT (AST) 16 <43 U/L 08/05/2024 8:45 PM CDT [facility] SGPT (ALT) 10 <56 U/L 08/05/2024 8:45 PM CDT [facility] ALKALINE PHOSPHATASE 68 40 - 150 U/L 08/05/2024 8:45 PM CDT [facility] GFR, ESTIMATED >60 >=60 08/05/2024 8:45 PM CDT [facility] Comment: Creatinine Clearance is the preferred criteria for selecting drug dose adjustments in renally impaired patients. The GFR is provided as additional pertinent clinical information. GFR is reported in mL/min/1.73 sq m. Calculation based on the Chronic Kidney Disease Epidemiology Collaboration (CKD- EPI) equation refit without adjustment for race. GFR, EST. >60 >=60 025 8:45 PM CDT [facility] GFR, EST. NONAFRICAN >60 >=60 08/05/2024 8:45 PM CDT [facility] Blood Venipuncture / Unknown 08/05/2024 8:10 PM CDT 08/05/2024 8:23 PM CDT us Oneil uJan PAC CHEMISTRY ORDERABLES Final Result [facility] [address] [place] [address] from Last 3 Months Insurance [employer] Care Teams Exterminator Helper Relationship Specialty Start Date End Date Provider, None LUCERO PCP - General 01/12/24
--- NOTE | 2024-09-28 14:32 | ED.EXTPRO ---
HPI - Extremity Problem General Chief complaint: Extremity Problem,Nontraumatic Stated complaint: ankles swelling and sore Time Seen by Provider: 09/28/24 14:31 Source: patient and RN notes reviewed Mode of arrival: ambulatory Limitations: no limitations History of Present Illness HPI Narrative: 24-year-old female presents with concern for right ankle pain and swelling. Reports symptoms started on . She reports she did not have any specific injury to the ankle. Reports she does have hardware in that ankle from a previous fracture. She reports pain is worse with weight-bearing. Denies increased pain with range of motion. She denies intervention. MD Complaint: extremity swelling Related Data Home Medications ?Medication ?Instructions ?Recorded ?Confirmed ?Last Taken ?Type ferrous sulfate PO 09/28/24 Unknown History Allergies Allergy/AdvReac Type Severity Reaction Status Date / Time No Known Allergies Allergy Verified 09/28/24 14:27 Review of Systems Review of Systems: CONSTITUTIONAL: Denies malaise, chills, sweats, or fever. CARDIOVASCULAR: Denies chest pain, palpitations, or edema. RESPIRATORY: Denies cough or dyspnea. SKIN: Denies rash or itching, bruising, redness MUSCULOSKELETAL: Reports right ankle pain and swelling NEUROLOGIC: Denies numbness, weakness All systems reviewed & are unremarkable except as noted in HPI and below PMFSH Past Medical History Medical History IBS (irritable bowel syndrome) Hypothyroidism Anemia Surgical History Surgical History History of orthopedic surgery right ankle repair Hx of breast reduction, elective also right breast tumor removed benign Social History Social History Smoking status: Never smoker Alcohol intake: current Alcohol use details: rare social Substance use type: does not use Living arrangements: with family Gender identity (if verbalized by the patient): Female Comments At time of signature, agree with nursing past medical, surgical, social and family history. There is no relevant family history pertinent to the presenting complaint Exam Narrative: GENERAL: Well-appearing, well-nourished, and in no acute distress. HEAD: Normocephalic, atraumatic. EYES: PERRLA, conjunctivae clear NECK: Supple. CHEST: Speaks in full sentences. No respiratory distress. HEART: Regular rate and rhythm. Normal and equal peripheral pulses. EXTREMITIES: Right ankle, foot, digits have grossly normal strength and sensation, normal range of motion. Mild circumferential nonpitting edema without erythema, induration or ecchymosis. Normal sensation with sensitivity to light touch and pain. Lateral ankle tenderness. No open wounds, no skin tenting, no devitalized tissue or atrophy, no trophic changes, no obvious deformity, alignment normal, nearby joints and structures intact. Distal pulses palpable and equal bilaterally, skin warm, dry, pink. Capillary refill less than 3 seconds. SKIN: Warm, dry, no rash. NEURO: Alert and oriented x3. PSYCH: Normal mood and affect Course Course Emergency Course: Patient is aware of diagnosis, understands and agrees to treatment plan. Anticipatory guidance given. Patient agrees to follow-up as directed and is aware of reasons to seek care at the emergency department. Portions of this record may have been created with voice recognition software Level of Care: Express Care Visit Vital Signs Vital signs: Vital Signs Temperature 98.1 F 09/28/24 14:22 Pulse Rate 72 09/28/24 14:22 Respiratory Rate 20 09/28/24 14:22 Blood Pressure 152/91 H 09/28/24 14:22 Pulse Oximetry 100 09/28/24 14:22 Oxygen Delivery Room Air 09/28/24 14:22 Temperature 98.1 F 09/28/24 14:22 Pulse Rate 72 09/28/24 14:22 Respiratory Rate 20 09/28/24 14:22 Blood Pressure 152/91 H 09/28/24 14:22 Pulse Oximetry 100 09/28/24 14:22 Oxygen Delivery Room Air 09/28/24 14:22 Reviewed. MDM - Extremity (Nontraumatic) Imaging Data My impression: Images reviewed, interpreted by radiologist, agree, see report. Radiologist's impression: XR ankle RT min 3V 09/28/2024 14:56 Indication: Ankle swelling Procedure: 4 views right ankle Comparison: No prior studies for comparison. Findings: There are surgical changes consistent with internal fixation of bimalleolar fractures. No acute fractures identified. Mild diffuse soft tissue swelling. Ankle mortise intact. No abnormality of the talar dome. Impression: 1: No acute fracture. 2: Mild nonspecific soft tissue swelling. Critical Care Time Critical Care Time Critical Care Time: No Discharge Plan Discharge Clinical Impression: Ankle swelling Qualifiers: Laterality: right Qualified Code(s): M25.471 - Effusion, right ankle Patient Disposition: Home Condition: Stable Instructions: Ankle Sprain (ED) Additional Instructions: Your x-ray looks normal Avoid activities that cause pain until the pain subsides. Ice to the area 20-30 minutes 4-6 times a day Elevate above heart Elastic wrap as directed for comfort for the next 5-7 days Tylenol for lesser pain Ibuprofen regularly for the next 2-3 days for the inflammation Follow up with your primary care provider if the condition is not improving within 1 week. If the condition worsens with numbness, tingling, decrease sensation with weakness seek treatment in the emergency room immediately. Patient Language: [place] Prescriptions: No Action ferrous sulfate [Iron (ferrous sulfate)] PO Follow-up/Referrals: PHYSICIAN,PLASTICS SCIENTIST [Primary Care Provider] - Stand Alone Forms: Work/School Release IP Time of Disposition: 15:07
== END 2024-09-28 15:12 | disposition home or self-care (01) ==
PROVIDERS: Emergency Provider Nurse Practitioner
DX: M25.471 Effusion, right ankle (principal); E03.9 Hypothyroidism, unspecified; D64.9 Anemia, unspecified
CPT/HCPCS: 73610; 99213; G0463